=== PATIENT | male | born 1985 | race Caucasian/White ===

== ENCOUNTER 2022-05-23 11:19 | Inpatient (IN) ==
[2022-05-23] MEDS ORDERED: NS 1,000 ML IV 1,000 ML ONE ×2 (11:29→12:26)
[2022-05-23] MEDS ORDERED: NS 1,000 ML IV 1,000 ML IV ONE ×2 (11:33→12:23)
--- NOTE | 2022-05-23 11:33 | DR.GENAD ---
HPI Time Seen Time Seen by Provider: 05/23/22 11:33 Complaint/Symptoms Chief Complaint Doctors Comments: 36 y/o male presents with possible GI bleeding. Had nausea and vomiting this am, emesis was dark, smelly. Same with bowel movement today. + lightheaded, dizzy. Denies previous known GI bleeding, b ut states his Hbg was a 3 about 1 month ago, was placed on iron then, stopped due to nausea. PT takes ibuprofen, 600 mg TID for musculoskeletal pain, took a Goody powder last pm. Denies abdominal pain. No fever, chills, URI symptoms. Nurses notes reviewed Nurses Notes Review: Yes Source History Provided: Patient Mode of Arrival Mode of Arrival: Ambulatory PMH PMH Past Medical History: Anxiety, Hypertension and Kidney Stones Past Surgical History: Yes Surgical History: Cholecystectomy and Ortho Surgery Family History Family Medical History: Diabetes Mellitus, Cancer, [place] and Hypertension Social History Do you use any recreational Drugs:: No ROS Review of Systems Constitutional: Weakness Eyes: No Symptoms Reported ENTM: No Symptoms Reported Respiratoy: No Symptoms Reported Cardiovascular: No Symptoms Reported Gastrointestinal/Abdominal: Nausea and Vomiting Genitourinary: No Symptoms Reported Neurological: Weakness and Dizziness Musculoskeletal: No Symptoms Reported Integumentary: No Symptoms Reported Hematologic/Lymphatic: No Symptoms Reported Psychiatric: No Symptoms Reported All Other Systems: Reviewed and Negative PE Vital Signs Vitals: Temperature 98.9 F Pulse Rate 118 Respiratory Rate 30 Blood Pressure [Left Arm] 144/63 Blood Pressure 105/62 O2 Sat by Pulse Oximetry 98 General General Appearance: Alert and In No Apparent Distress Eyes Eye exam: PERRL, EOMI and Other (+ aple palpebral conjunctivae) ENT ENT Exam: Normal Exam and Mucous Membranes Moist Neck Neck Exam: Normal Inspection and Full ROM Respiratory Respiratory Exam: Normal Lung Sounds Bilat; negative Accessory Muscle Use or Respiratory Distress Cardiovascular Cardiovascular Exam: Regular Rate, Normal Rhythm, Tachycardia and Normal Heart Sounds Abdominal Exam Abdominal Exam: Normal Inspection, Normal Bowel Sounds and Soft; negative Tenderness Extremities Extremities Exam: Normal Inspection and Full ROM; negative Edema Neurologic Neurological Exam: Alert, Oriented X3 and CN II-XII Intact; negative Motor Sensory Deficit Skin Skin Exam: Warm and Dry COURSE Treatment Treatment: 36 y/o male ill since early this am. Reportedly vomited black emesis, plus a BM that was similar. + recent dx of anemia, put on iron, a month ago. W/u initiated. Pt given IV fluids, IV protonix/zofran. 1305 - sodium 150, potassium 3.0. Given 2nd L NS. Discussed with Dr Mccracken, he will admit. Hector consult with Dr Cody for possible EGD in the AM. NO active vomiting/stooling here. [facility]OR Labs Reviewed Laboratory Results Reviewed?: Yes Result Diagrams: 05/23/22 11:30 05/23/22 11:30 Laboratory: WBC 11.7 X10^3/uL (3.6-10.0) H 05/23/22 11:30 RBC 4.15 X10^6/uL (4.7-6.0) L 05/23/22 11:30 Hgb 10.7 g/dL (13.5-18.0) L 05/23/22 11:30 Hct 32.1 % (42.0-54.0) L 05/23/22 11:30 MCV 77.4 fL (80.0-100.0) L 05/23/22 11:30 MCH 25.8 pg (27.0-34.0) L 05/23/22 11:30 MCHC 33.3 g/dL (33.0-35.0) 05/23/22 11:30 RDW 20.5 % (11.6-16.5) H 05/23/22 11:30 Plt Count 172 X10^3/uL (150.0-450.0) 05/23/22 11:30 Plt Count Comment Adequate (ADEQUATE) 05/23/22 11:30 MPV 8.2 fL (7.4-11.0) 05/23/22 11:30 Neut % (Auto) 76.9 % (42.0-75.0) H 05/23/22 11:30 Lymph % (Auto) 14.5 % (21.0-51.0) L 05/23/22 11:30 [place] % (Auto) 7.5 % (0.0-13.0) 05/23/22 11:30 Eos % (Auto) 0.5 % (0.9-2.9) L 05/23/22 11:30 Baso % (Auto) 0.6 % (0.2-1.0) 05/23/22 11:30 Neut # (Auto) 9.0 x10^3/uL (2.2-4.8) H 05/23/22 11:30 Lymph # (Auto) 1.7 X10^3/uL (1.3-2.9) 05/23/22 11:30 [place] # (Auto) 0.9 x10^3/uL (0.3-0.8) H 05/23/22 11:30 Eos # (Auto) 0.1 x10^3/uL (0.0-0.2) 05/23/22 11:30 Baso # (Auto) 0.1 X10^3/uL (0.0-0.1) 05/23/22 11:30 Absolute Nucleated RBC 0.0 /100WBC 05/23/22 11:30 Plt Morphology Comment Normal (NORMAL) 05/23/22 11:30 RBC Morphology Abnormal (NORMAL) 05/23/22 11:30 Anisocytosis 1+ A 05/23/22 11:30 PT 22.5 SECONDS (11.8-14.3) 05/23/22 11:30 INR Target Range - 05/23/22 11:30 INR 2.08 (0.8-1.3) H 05/23/22 11:30 APTT 39.2 SECONDS (22.9-36.5) H 05/23/22 11:30 PTT Comment - 05/23/22 11:30 Sodium 150 mmol/L (136-145) H* 05/23/22 11:30 Corrected Sodium 151 mmol/L (136-145) H 05/23/22 11:30 Potassium 3.0 mmol/L (3.5-5.1) L 05/23/22 11:30 Chloride 112 mmol/L (98-107) H 05/23/22 11:30 Carbon Dioxide 23.6 mmol/L (21-32) 05/23/22 11:30 BUN 16 mg/dL (7-18) 05/23/22 11:30 Creatinine 1.12 mg/dL (0.70-1.30) 05/23/22 11:30 Est GFR (MDRD) Af Amer > 60 (>60) 05/23/22 11:30 Est GFR (MDRD) Non-Af > 60 (>60) 05/23/22 11:30 Glucose 121 mg/dL (65-99) H 05/23/22 11:30 Calcium 8.4 mg/dL (8.5-10.1) L 05/23/22 11:30 Corrected Calcium 9.2 mg/dL (8.5-10.1) 05/23/22 11:30 Total Bilirubin 1.40 mg/dL (0.2-1.0) H 05/23/22 11:30 AST 26 Units/L (15-37) 05/23/22 11:30 ALT 17 Units/L (12-78) 05/23/22 11:30 Alkaline Phosphatase 150 Units/L (46-116) H 05/23/22 11:30 Total Protein 6.4 g/dL (6.4-8.2) 05/23/22 11:30 Albumin 3.0 g/dL (3.4-5.0) L 05/23/22 11:30 Globulin 3.4 g/dL (2.5-4.5) 05/23/22 11:30 Albumin/Globulin Ratio 0.9 Ratio (1.1-2.1) L 05/23/22 11:30 Lipase 153 Units/L (73-393) 05/23/22 11:30 Blood Type O POSITIVE 05/23/22 11:35 Antibody Screen Negative 05/23/22 11:30 Opioid Opioid Risk Tool Total: 0 Total Score Risk Category: Low Risk Copyright: Froilan MARINA predicting aberrant behaviors Discharge Plan Diagnosis Discharge Problem: Acute upper GI bleed, Acute hypernatremia Discharge Plan Patient Disposition: 09 ADMITTED INPATIENT Condition: Stable Orders to Discharge Patient Discharge Orders: Transfer (Routine); Ordered 05/23/22 Ordered By: Ford Coats
[2022-05-23 11:43] VITALS: BMI 32.5
[2022-05-23] MEDS ORDERED: ZOFRAN INJ 4 MG VIAL IVP ONE (11:45)
[2022-05-23] MEDS ORDERED: PROTONIX INJ 40 MG VIAL IVP ONE (11:45)
[2022-05-23] MEDS ORDERED: ZOFRAN INJ 4 MG VIAL ONE (11:56)
[2022-05-23] MEDS ORDERED: PROTONIX INJ 40 MG VIAL ONE (11:56)
[2022-05-23 11:57] LABS: BASOPHILS # (AUTO) 0.1 X10^3/uL (0.0-0.1); BASOPHILS % (AUTO) 0.6 % (0.2-1.0); EOSINOPHILS # (AUTO) 0.1 x10^3/uL (0.0-0.2); EOSINOPHILS % (AUTO) 0.5 % (0.9-2.9); HEMATOCRIT 32.1 % (42.0-54.0); HEMOGLOBIN 10.7 g/dL (13.5-18.0); LYMPHOCYTES # (AUTO) 1.7 X10^3/uL (1.3-2.9); LYMPHOCYTES % (AUTO) 14.5 % (21.0-51.0); MEAN CORPUSCULAR HEMOGLOBIN 25.8 pg (27.0-34.0); MEAN CORPUSCULAR HGB CONC 33.3 g/dL (33.0-35.0); MEAN CORPUSCULAR VOLUME 77.4 fL (80.0-100.0); MEAN PLATELET VOLUME 8.2 fL (7.4-11.0); MONOCYTES # (AUTO) 0.9 x10^3/uL (0.3-0.8); MONOCYTES % (AUTO) 7.5 % (0.0-13.0); NEUTROPHILS % (AUTO) 76.9 % (42.0-75.0); RED BLOOD COUNT 4.15 X10^6/uL (4.7-6.0); RED CELL DISTRIBUTION WIDTH 20.5 % (11.6-16.5); WHITE BLOOD COUNT 11.7 X10^3/uL (3.6-10.0)
[2022-05-23 12:07] LABS: INR 2.08 (0.8-1.3)
[2022-05-23 12:16] LABS: ALANINE AMINOTRANSFERASE 17 Units/L (12-78); ALKALINE PHOSPHATASE 150 Units/L (46-116); ANISOCYTOSIS 1+; ASPARTATE AMINO TRANSFERASE 26 Units/L (15-37); BLOOD UREA NITROGEN 16 mg/dL (7-18); CALCIUM 8.4 mg/dL (8.5-10.1); CARBON DIOXIDE 23.6 mmol/L (21-32); CHLORIDE 112 mmol/L (98-107); COR CA(FOR HYPOALB) 9.2 mg/dL (8.5-10.1); COR NA(FOR HYPERGLY) 151 mmol/L (136-145); CREATININE 1.12 mg/dL (0.70-1.30); LIPASE 153 Units/L (73-393); PLATELET MORPHOLOGY COMMENT NORMAL (NORMAL); TOTAL PROTEIN 6.4 g/dL (6.4-8.2); eGFR NON BLACK RACES > 60 (>60)
[2022-05-23 12:19] LABS: SODIUM 150 mmol/L (136-145)
[2022-05-23] MEDS ORDERED: K-RIDER 10 MEQ/NS 100 ML 10 MEQ/100 ML BAG IV PRN ×3 (14:26→16:14)
[2022-05-23] MEDS ORDERED: KLOR-CON PO PRN ×2 (14:26→16:14)
[2022-05-23] MEDS ORDERED: POTASSIUM CHL 60 MEQ/NS 0.45% 500 ML IV PRN ×3 (14:26→16:14)
[2022-05-23] MEDS ORDERED: MAGNESIUM SULFATE 1 GRAM/100 mL PREMIX 1 G/100 ML BAG IV PRN ×3 (14:26→16:14)
[2022-05-23] MEDS ORDERED: MICRO K EXTEN CAP 10 MEQ PO PRN ×3 (14:26→16:14)
[2022-05-23] MEDS ORDERED: K-DUR TAB 20 MEQ PO PRN ×2 (14:26→16:14)
[2022-05-23] MEDS ORDERED: POTASSIUM CHL 40 MEQ/NS 0.45% 500 ML IV PRN ×3 (14:26→16:14)
[2022-05-23] MEDS ORDERED: POTASSIUM CHLORIDE LIQ 20 MEQ UDC PO PRN ×3 (14:26→16:14)
[2022-05-23] MEDS: NEURONTIN TAB 600 MG PO SCH ×2 (16:30→21:16)
[2022-05-23] MEDS: MAGNESIUM SULFATE 1 GRAM/100 mL PREMIX 1 G/100 ML BAG IV PRN ×2 (16:32→17:42)
[2022-05-23] MEDS: KLOR-CON PO PRN (16:32)
[2022-05-23] MEDS: D5 1/2 NS 1,000 ML 1,000 ML with POTASSIUM CHLORIDE INJ 10 MEQ VIAL 10 MEQ IV SCH ×4 (16:40→23:53)
[2022-05-23 16:51] LABS: BILIRUBIN,URINE NEGATIVE (NEGATIVE); BLOOD/HEMOGLOBIN,URINE 5+ (NEGATIVE); GLUCOSE, URINE NEGATIVE (NEGATIVE); KETONES,URINE 2+ (NEGATIVE); LEUKOCYTE ESTERASE ,URINE 1+ (NEGATIVE); NITRITES,URINE NEGATIVE (NEGATIVE); PH,URINE 6.5 (5.0 - 8.0); PROTEIN,URINE 2+ (NEGATIVE); UROBILINOGEN,URINE 1+ (NORMAL)
[2022-05-23 17:03] LABS: APPEARANCE,URINE HAZY (CLEAR); COLOR,URINE AMBER (YELLOW)
[2022-05-23 17:04] LABS: BACTERIA,URINE NEGATIVE /HPF (NEGATIVE); RBC,URINE 20-30 /HPF (0-3); SQUAMOUS EPITHELIAL CELL,UR RARE /HPF (NEGATIVE)
[2022-05-23] MEDS: ZOCOR TAB 40 MG PO SCH (21:16)
[2022-05-23] MEDS: K-DUR TAB 20 MEQ PO PRN (21:17)
[2022-05-23] MEDS: ZOFRAN INJ 4 MG VIAL IVP PRN (21:30)
[2022-05-24] MEDS: D5 1/2 NS 1,000 ML 1,000 ML with POTASSIUM CHLORIDE INJ 10 MEQ VIAL 10 MEQ IV SCH ×2 (02:48)
[2022-05-24 05:03] LABS: BASOPHILS # (AUTO) 0.1 X10^3/uL (0.0-0.1); BASOPHILS % (AUTO) 0.6 % (0.2-1.0); EOSINOPHILS # (AUTO) 0.3 x10^3/uL (0.0-0.2); EOSINOPHILS % (AUTO) 2.6 % (0.9-2.9); HEMATOCRIT 29.1 % (42.0-54.0); HEMOGLOBIN 9.7 g/dL (13.5-18.0); LYMPHOCYTES # (AUTO) 3.9 X10^3/uL (1.3-2.9); LYMPHOCYTES % (AUTO) 34.4 % (21.0-51.0); MEAN CORPUSCULAR HEMOGLOBIN 25.4 pg (27.0-34.0); MEAN CORPUSCULAR HGB CONC 33.3 g/dL (33.0-35.0); MEAN CORPUSCULAR VOLUME 76.1 fL (80.0-100.0); MEAN PLATELET VOLUME 8.6 fL (7.4-11.0); MONOCYTES # (AUTO) 0.9 x10^3/uL (0.3-0.8); MONOCYTES % (AUTO) 7.9 % (0.0-13.0); NEUTROPHILS # (AUTO) 6.2 x10^3/uL (2.2-4.8); NEUTROPHILS % (AUTO) 54.5 % (42.0-75.0); RED BLOOD COUNT 3.83 X10^6/uL (4.7-6.0); RED CELL DISTRIBUTION WIDTH 20.4 % (11.6-16.5); WHITE BLOOD COUNT 11.4 X10^3/uL (3.6-10.0)
[2022-05-24 05:15] LABS: ALANINE AMINOTRANSFERASE 15 Units/L (12-78); ALBUMIN 2.9 g/dL (3.4-5.0); ALKALINE PHOSPHATASE 128 Units/L (46-116); ASPARTATE AMINO TRANSFERASE 31 Units/L (15-37); BLOOD UREA NITROGEN 19 mg/dL (7-18); CALCIUM 7.8 mg/dL (8.5-10.1); CARBON DIOXIDE 23.7 mmol/L (21-32); CHLORIDE 114 mmol/L (98-107); COR CA(FOR HYPOALB) 8.7 mg/dL (8.5-10.1); CREATININE 0.93 mg/dL (0.70-1.30); MAGNESIUM 1.9 mg/dL (2.0-2.9); TOTAL PROTEIN 5.8 g/dL (6.4-8.2); eGFR NON BLACK RACES > 60 (>60)
[2022-05-24] MEDS: NEURONTIN TAB 600 MG PO SCH ×3 (05:29→21:06)
[2022-05-24 05:30] LABS: SODIUM 150 mmol/L (136-145)
[2022-05-24 05:35] LABS: ANISOCYTOSIS 1+; HYPOCHROMASIA SLIGHT; MICROCYTOSIS SLIGHT; OVALOCYTES PRESENT; PLATELET MORPHOLOGY COMMENT NORMAL (NORMAL); TARGET CELLS PRESENT
[2022-05-24] MEDS: MAGNESIUM SULFATE 1 GRAM/100 mL PREMIX 1 G/100 ML BAG IV PRN ×2 (06:24→16:37)
[2022-05-24] MEDS: ZOFRAN INJ 4 MG VIAL IVP PRN ×2 (07:17→20:16)
[2022-05-24] MEDS: PROTONIX INJ 40 MG VIAL IVP SCH (08:17)
[2022-05-24] MEDS: D5 1/2 NS 1,000 ML 1,000 ML IV SCH ×2 (08:17→16:45)
[2022-05-24] MEDS: PEPCID TAB 20 MG PO SCH (08:18)
--- NOTE | 2022-05-24 12:09 | DR.H&P ---
H&P - History & Physical for Day of: H&P Date: 05/23/22 - Chief Complaint Chief Complaint: NAUSEA, VOMITING, DARK/TARRY STOOLS - History of Present Illness History of Present Illness: IS A 36 YEAR OLD PATIENT OF OURS. HE PRESENTED TO THE ER WITH COMPLAINTS OF NAUSEA AND VOMITING. HE REPORTS THAT EMESIS WAS DARK AND HAD A FOUL ODOR. HE ALSO REPORTED HAVING A DARK, TARRY BOWEL MOVEMENT EARLIER IN THE DAY. ADDITIONAL SYMPTOMS INCLUDE DIZZINESS AND BEING LIGHTHEADED. HE DENIES PREVIOUS GI BLEED, BUT STATES THAT HIS HEMOGLOBIN WAS 3 g/dL ABOUT A MONTH AGO. HE WAS STARTED ON IRON SUPPLEMENTS AT THAT TIME, BUT STOPPED TAKING THEM DUE TO NAUSEA. HE ADMITS TO TAKING IBUPROFEN THREE TIMES A DAY FOR PAIN AND HE ALSO TOOK A GOODY POWDER ONE DAY PRIOR. HE DENIES ABDOMINAL PAIN, FEVER, CHILLS, OR URI SYMTPOMS. HIS PMH INCLUDES ANXIETY, HTN, KIDNEY STONES, CHRONIC LOW BACK PAIN, CHOLECYSTECTOMY. ON ARRIVAL, HIS VITALS WERE 98.9-154-20-97%-108/56. LABS WERE OBTAINED. WBC 11.7, RBC 4.15, HGB 10.7, HCT 32.1, PLT COUNT 172, INR 2.08, PTT 39.2, SODIUM 150, POTASSIUM 3.0, CHLORIDE 112, BUN 16, CREATININE 1.12, GLUCOSE 121, CALCIUM 8.4, MAGNESIUM 1.7, TOTAL BILI 1.40, AST 26, ALT 17, ALK PHOS 150, TOTAL PROTEIN 6.4, ALBUMIN 3.0, GLOB ULIN 3.4. URINALYSIS REVEALED WBC 5-10, RBC 20-30, BACTERIA NEGATIVE, LEUKOCYTES 1+, PROTEIN 2+. WE WILL SET UP A URINE CULTURE. , GENERAL SURGEON WAS CONSULTED. HE PLANS FOR AN UPPER ENDOSCOPY TODAY. IN THE ER, HE WAS GIVEN A NORMAL SALINE BOLUS X 2 LITERS, PROTONIX 40MG IV DAILY, ZOFRAN 4MG IV X 1. HE WAS ADMITTED TO THE HOSPITAL FOR FURTHER EVALUATION AND TREATMENT OF UPPER GI BLEED, HYPERNATREMIA. HE WAS STARTED ON D51/2 NS AT 125 ML/HR, PEPCID 20MG IV DAILY, PROTONIX 40MG IV DAILY, ZOFRAN 4MG IV Q6H PRN, PERCOCET 5/325 2 TABS PO Q6H PRN, ZOCOR 40MG PO HS, NEURONTIN 600MG PO TID, AND THE POTASSIUM AND MAGNESIUM PROTOCOLS. OTHERWISE, WE WILL FOLLOW-UP WITH AM LABS AND CONTINUE TO MONITOR. TIME SPENT ON CLINICAL ASSESSMENT, REVIWING LABS AND IMAGING, DECISION MAKING, AND DOCUMENTATION GREATER THAN 75 MINUTES. - Past Medical History Past Medical History: Anemia, Anxiety, Hypertension, Kidney Stones Additional Medical History: Hx of Degenerative Disc Disease, Hormone Disorder - Past Surgical History Surgical History: Cholecystectomy, Ortho Surgery Additional Surgical History: Hx of Lumbar Disc Replacement(2014), Pilonidal Cyst Removal(2000), Fistula Removal(2000) - Family History Family Medical History: Diabetes Mellitus, Cancer, [place], Hypertension - Social History Does patient currently use any type of tobacco product: Yes (1 pack daily) Have you used tobacco products in the last 12 months: Yes Type of Tobacco Use: Cigarettes Does any household member use tobacco: Yes Alcohol Use: None Drug Use: None - Medications Home Medications: No Known Drug Allergies Allergy (Verified 05/23/22 23:29) CONTINUE taking the following medications cyclobenzaprine 10 mg tablet 1 tab PO TID 05/23/22 [History] oxycodone-acetaminophen 10 mg-325 mg tablet 1 tab PO QID PRN 05/23/22 [History] - Review of Systems Constitutional: Weakness Eyes: No Symptoms Reported ENT: No Symptoms Reported Respiratory: No Symptoms Reported Cardiovascular: No Symptoms Reported Gastrointestinal: Nausea, Vomiting, Melena Genitourinary: No Symptoms Reported Musculoskeletal: No Symptoms Reported Skin: No Symptoms Reported Neurological: Weakness - Physical Exam Vital Signs: Temperature 99.6 F Pulse Rate [Bilateral Radial] 114 Pulse Rate 122 Respiratory Rate 20 Blood Pressure [Left Arm] 136/71 Blood Pressure 101/49 O2 Sat by Pulse Oximetry 98 Oriented: Normal Eyes: Normal Ear: Normal Nose: Normal Throat: Normal Respiratory: Clear Throughout Cardiovascular: Tachycardia : Normal Auscultation: Bowel Sounds: Normal Palpation: Normal Tenderness: Normal Musculoskeletal: Normal Psychiatric: Normal Mood Description: Calm Affect: Normal Speech Pattern: Clear - Assessment/Plan (1) Acute upper GI bleed Status: Acute Plan: ADMIT, EGD TODAY, D51/2 NS AT 125 ML/HR, PEPCID 20MG IV DAILY, PROTONIX 40MG IV DAILY, ZOFRAN 4MG IV Q6H PRN, PERCOCET 5/325 2 TABS PO Q6H PRN, ZOCOR 40MG PO HS, NEURONTIN 600MG PO TID, AND THE POTASSIUM AND MAGNESIUM PROTOCOLS. (2) Acute hypernatremia Status: Acute (3) Hypokalemia Status: Acute (4) Anemia Qualifiers: Anemia type: iron deficiency Iron deficiency anemia type: chronic blood loss Qualified Code(s): D50.0 - Iron deficiency anemia secondary to blood loss (chronic) Status: Acute - Allergies Allergies/Adverse Reactions: Allergies Allergy/AdvReac Type Severity Reaction Status Date / Time No Known Drug Allergies Allergy Verified 05/23/22 23:29
[2022-05-24] MEDS: MORPHINE SULFATE INJ 2 MG INJ IVP PRN ×2 (12:55→17:36)
[2022-05-24] MEDS ORDERED: NS 500 ML IV 500 ML IV ONE (13:40)
[2022-05-24] MEDS ORDERED: DIPRIVAN VIAL 20 ML ONE (13:49)
[2022-05-24] MEDS ORDERED: ZOFRAN INJ 4 MG VIAL ONE (14:00)
[2022-05-24] MEDS ORDERED: REGLAN INJ 10 MG VIAL IVP PRN (14:10)
[2022-05-24] MEDS: KLOR-CON PO PRN (17:56)
[2022-05-24] MEDS ORDERED: BUTT CREAM (COMPOUND) TOP PRN (19:02)
[2022-05-24] MEDS: ZOCOR TAB 40 MG PO SCH (20:16)
[2022-05-24] MEDS: PERCOCET TAB 5/325 MG PO PRN (20:37)
[2022-05-25] MEDS: D5 1/2 NS 1,000 ML 1,000 ML IV SCH ×3 (01:00→18:34)
[2022-05-25] MEDS: PERCOCET TAB 5/325 MG PO PRN ×4 (02:50→20:46)
[2022-05-25] MEDS: NEURONTIN TAB 600 MG PO SCH ×3 (05:30→22:00)
[2022-05-25 06:19] LABS: BASOPHILS # (AUTO) 0.2 X10^3/uL (0.0-0.1); BASOPHILS % (AUTO) 2.8 % (0.2-1.0); EOSINOPHILS # (AUTO) 0.2 x10^3/uL (0.0-0.2); EOSINOPHILS % (AUTO) 2.6 % (0.9-2.9); HEMATOCRIT 26.4 % (42.0-54.0); LYMPHOCYTES # (AUTO) 2.3 X10^3/uL (1.3-2.9); LYMPHOCYTES % (AUTO) 29.3 % (21.0-51.0); MEAN CORPUSCULAR HEMOGLOBIN 26.3 pg (27.0-34.0); MEAN CORPUSCULAR HGB CONC 33.9 g/dL (33.0-35.0); MEAN CORPUSCULAR VOLUME 77.7 fL (80.0-100.0); MEAN PLATELET VOLUME 8.2 fL (7.4-11.0); MONOCYTES # (AUTO) 0.5 x10^3/uL (0.3-0.8); MONOCYTES % (AUTO) 6.4 % (0.0-13.0); NEUTROPHILS # (AUTO) 4.6 x10^3/uL (2.2-4.8); NEUTROPHILS % (AUTO) 58.9 % (42.0-75.0); RED CELL DISTRIBUTION WIDTH 19.9 % (11.6-16.5); WHITE BLOOD COUNT 7.8 X10^3/uL (3.6-10.0)
[2022-05-25 06:22] LABS: ALANINE AMINOTRANSFERASE 20 Units/L (12-78); ALBUMIN 3.1 g/dL (3.4-5.0); ALKALINE PHOSPHATASE 135 Units/L (46-116); ASPARTATE AMINO TRANSFERASE 37 Units/L (15-37); BLOOD UREA NITROGEN 12 mg/dL (7-18); CALCIUM 7.8 mg/dL (8.5-10.1); CARBON DIOXIDE 23.8 mmol/L (21-32); CHLORIDE 110 mmol/L (98-107); COR CA(FOR HYPOALB) 8.5 mg/dL (8.5-10.1); SODIUM 145 mmol/L (136-145); eGFR NON BLACK RACES > 60 (>60)
[2022-05-25] MEDS: K-DUR TAB 20 MEQ PO PRN (08:49)
[2022-05-25] MEDS: PEPCID TAB 20 MG PO SCH (08:50)
[2022-05-25] MEDS: PROTONIX INJ 40 MG VIAL IVP SCH (08:50)
[2022-05-25] MEDS ORDERED: GOLYTELY or GAVILYTE or Equivalent PO SCH (09:00)
[2022-05-25] MEDS: ZOFRAN INJ 4 MG VIAL IVP PRN ×2 (11:12→18:41)
[2022-05-25 19:21] LABS: MAGNESIUM 1.6 mg/dL (2.0-2.9)
[2022-05-25] MEDS: KLOR-CON PO PRN ×2 (19:45→23:02)
[2022-05-25] MEDS: MAGNESIUM SULFATE 1 GRAM/100 mL PREMIX 1 G/100 ML BAG IV PRN ×2 (19:45→20:45)
[2022-05-25] MEDS: ZOCOR TAB 40 MG PO SCH (20:43)
[2022-05-26] MEDS: D5 1/2 NS 1,000 ML 1,000 ML IV SCH ×2 (01:24→04:35)
[2022-05-26 02:20] LABS: BLOOD UREA NITROGEN 7 mg/dL (7-18); CALCIUM 7.4 mg/dL (8.5-10.1); CARBON DIOXIDE 23.1 mmol/L (21-32); CHLORIDE 107 mmol/L (98-107); CREATININE 0.89 mg/dL (0.70-1.30); SODIUM 142 mmol/L (136-145); eGFR NON BLACK RACES > 60 (>60)
[2022-05-26 02:23] LABS: BASOPHILS % (AUTO) 0.9 % (0.2-1.0); EOSINOPHILS # (AUTO) 0.1 x10^3/uL (0.0-0.2); EOSINOPHILS % (AUTO) 3.5 % (0.9-2.9); HEMATOCRIT 22.7 % (42.0-54.0); HEMOGLOBIN 7.8 g/dL (13.5-18.0); LYMPHOCYTES # (AUTO) 1.4 X10^3/uL (1.3-2.9); LYMPHOCYTES % (AUTO) 40.1 % (21.0-51.0); MEAN CORPUSCULAR HEMOGLOBIN 26.5 pg (27.0-34.0); MEAN CORPUSCULAR HGB CONC 34.5 g/dL (33.0-35.0); MEAN CORPUSCULAR VOLUME 76.9 fL (80.0-100.0); MEAN PLATELET VOLUME 7.8 fL (7.4-11.0); MONOCYTES # (AUTO) 0.3 x10^3/uL (0.3-0.8); MONOCYTES % (AUTO) 9.3 % (0.0-13.0); NEUTROPHILS # (AUTO) 1.6 x10^3/uL (2.2-4.8); NEUTROPHILS % (AUTO) 46.2 % (42.0-75.0); RED BLOOD COUNT 2.96 X10^6/uL (4.7-6.0); RED CELL DISTRIBUTION WIDTH 19.5 % (11.6-16.5); WHITE BLOOD COUNT 3.5 X10^3/uL (3.6-10.0)
[2022-05-26 03:01] LABS: ALANINE AMINOTRANSFERASE 27 Units/L (12-78); ALBUMIN 2.9 g/dL (3.4-5.0); ALKALINE PHOSPHATASE 135 Units/L (46-116); ASPARTATE AMINO TRANSFERASE 64 Units/L (15-37); COR CA(FOR HYPOALB) 8.3 mg/dL (8.5-10.1); MAGNESIUM 1.8 mg/dL (2.0-2.9); TOTAL PROTEIN 5.7 g/dL (6.4-8.2)
[2022-05-26] MEDS: MAGNESIUM SULFATE 1 GRAM/100 mL PREMIX 1 G/100 ML BAG IV PRN ×2 (03:30→04:35)
[2022-05-26] MEDS: NEURONTIN TAB 600 MG PO SCH (05:28)
[2022-05-26] MEDS: MORPHINE SULFATE INJ 2 MG INJ IVP PRN (06:31)
[2022-05-26] MEDS: PROTONIX INJ 40 MG VIAL IVP SCH (08:24)
[2022-05-26] MEDS: PEPCID TAB 20 MG PO SCH (08:34)
[2022-05-26] MEDS ORDERED: NS 500 ML IV 500 ML IV ONE (10:10)
[2022-05-26] MEDS ORDERED: DIPRIVAN VIAL 20 ML ONE ×2 (10:21→10:32)
--- NOTE | 2022-05-26 10:41 | PCM.PROG ---
Progress Note - Progress Note for Day of Date of Exam: 05/25/22 - Subjective Subjective: IS CURRENTLY INPATIENT STATUS FOR TREATMENT OF ACUTE UPPER GI BLEED, ANEMIA, HYPERNATREMIA, AND HYPOKALEMIA. TODAY, HE IS ALERT AND ORIENTED, LYING IN BED ON MORNING ROUNDS. HE CONTINUES WITH COMPLAINTS OF NAUSEA AND GENERALIZED WEAKNESS. HE CONTINUES TO HAVE DARK STOOLS. ON EXAMINATION, HEART IS REGULAR IN RATE AND RHYTHM. BILATERAL LUNGS ARE CLEAR TO AUSCULTATION. ABDOMEN IS ROUND, SOFT, AND NON-TENDER WITH NORMAL BOWEL SOUNDS NOTED IN ALL QUADRANTS. NO UPPER OR LOWER EXTREMITY EDEMA NOTED. HIS VITALS THIS MORNING ARE: 98.0-96-18-98%-132/72. LABS WERE OBTAINED. WBC 7.8, RBC 3.40, HGB 9.0, HCT 26.4, PLT COUNT 137, SODIUM 145, POTASSIUM 3.0, CHLORIDE 110, BUN 12, CREATININE 0.90, GLUCOSE 105, CALCIUM 7.8, MAGNESIUM 1.6, TOTAL BILI 1.30, AST 37, ALT 20, ALK PHOS 135, TOTAL PROTEIN 6.0, ALBUMIN 3.1. GGT PENDING. URINE CULTURE IS PENDING. AN UPPER ENDOSCOPY WAS PERFORMED YESTERDAY AND REVEALED MODERATE DIFFUSE ESOPHAGITIS WITH MILD ESOPHAGEAL DYSMOTILITY DISORDER, CHRONIC AND ACUTE GASTRITIS WITH GASTROPARESIS, ESOPHAGEAL VARICIES, LARGE AMOUNT OF RESIDUAL FOOD IN THE STOMACH. NO ACTIVE BLEEDING, ULCERS, OR NEOPLASM NOTED. SHE IS CURRENTLY RECEIVING D51/2 NS AT 125 ML/HR, REGLAN 10MG IV Q8H, PEPCID 20MG IV DAILY, PROTONIX 40MG IV DAILY, ZOFRAN 4MG IV Q6H PRN, PERCOCET 5/325 2 TABS PO Q6H PRN, ZOCOR 40MG PO HS, NEURONTIN 600MG PO TID, AND THE POTASSIUM AND MAGNESIUM PROTOCOLS. HE IS SCHEDULED FOR A COLONOSCOPY TOMORROW. OTHERWISE, WE PLAN TO FOLLOW-UP WITH AM LABS AND CONTINUE TO MONITOR. TIME SPENT ON CLINICAL ASSESSMENT, REVIWING LABS AND IMAGING, DECISION MAKING, AND DOCUMENTATION GREATER THAN 45 MINUTES. - Past Medical Family Social History Past Med/Fam/Surg Hx: No changes since H&P Allergies: Allergies No Known Drug Allergies Allergy (Verified 05/23/22 23:29) - Review of Systems ROS: No change since H&P - Vital Signs and I&O's Vital Signs: Temperature 98.1 F Pulse Rate [Bilateral Radial] 100 Pulse Rate 122 Respiratory Rate 20 Blood Pressure [Left Arm] 144/84 Blood Pressure 101/49 O2 Sat by Pulse Oximetry 98 Intake and Output: Intake & Output 05/23/22 05/24/22 05/25/22 05/26/22 11:59 11:59 11:59 11:59 Intake Total 2329 / 2329 2465 / 2465 6251 / 6251 Balance 2329 / 2329 2465 / 2465 6251 / 6251 - Physical Exam Oriented: Normal Eyes: Normal Ear: Normal Nose: Normal Throat: Normal Respiratory: Normal Cardiovascular: Normal : Normal Auscultation: Bowel Sounds: Normal Palpation: Normal (-) Tenderness: Normal Skin: Normal Musculoskeletal: Normal Psychiatric: Normal Mood Description: Calm Affect: Normal Speech Pattern: Clear - Laboratory and Diagnostics Result Diagrams: 05/26/22 02:00 05/26/22 02:00 Labs: Laboratory WBC 3.5 X10^3/uL (3.6-10.0) L 05/26/22 02:00 RBC 2.96 X10^6/uL (4.7-6.0) L 05/26/22 02:00 Hgb 7.8 g/dL (13.5-18.0) L 05/26/22 02:00 Hct 22.7 % (42.0-54.0) L 05/26/22 02:00 MCV 76.9 fL (80.0-100.0) L 05/26/22 02:00 MCH 26.5 pg (27.0-34.0) L 05/26/22 02:00 MCHC 34.5 g/dL (33.0-35.0) 05/26/22 02:00 RDW 19.5 % (11.6-16.5) H 05/26/22 02:00 Plt Count 96 X10^3/uL (150.0-450.0) L 05/26/22 02:00 Plt Count Comment Adequate (ADEQUATE) 05/24/22 04:34 MPV 7.8 fL (7.4-11.0) 05/26/22 02:00 Neut % (Auto) 46.2 % (42.0-75.0) 05/26/22 02:00 Lymph % (Auto) 40.1 % (21.0-51.0) 05/26/22 02:00 Emanuel % (Auto) 9.3 % (0.0-13.0) 05/26/22 02:00 Eos % (Auto) 3.5 % (0.9-2.9) H 05/26/22 02:00 Baso % (Auto) 0.9 % (0.2-1.0) 05/26/22 02:00 Neut # (Auto) 1.6 x10^3/uL (2.2-4.8) L 05/26/22 02:00 Lymph # (Auto) 1.4 X10^3/uL (1.3-2.9) 05/26/22 02:00 Emanuel # (Auto) 0.3 x10^3/uL (0.3-0.8) 05/26/22 02:00 Eos # (Auto) 0.1 x10^3/uL (0.0-0.2) 05/26/22 02:00 Baso # (Auto) 0.0 X10^3/uL (0.0-0.1) 05/26/22 02:00 Absolute Nucleated RBC 0.0 /100WBC 05/26/22 02:00 Plt Morphology Comment Normal (NORMAL) 05/24/22 04:34 RBC Morphology Abnormal (NORMAL) 05/24/22 04:34 Hypochromasia Slight A 05/24/22 04:34 Anisocytosis 1+ A 05/24/22 04:34 Microcytosis Slight A 05/24/22 04:34 Target Cells Present 05/24/22 04:34 Ovalocytes Present 05/24/22 04:34 PT 19.3 SECONDS (11.8-14.3) 05/26/22 02:00 INR Target Range - 05/26/22 02:00 INR 1.70 (0.8-1.3) H 05/26/22 02:00 APTT 39.2 SECONDS (22.9-36.5) H 05/23/22 11:30 PTT Comment - 05/23/22 11:30 Sodium 142 mmol/L (136-145) 05/26/22 02:00 Corrected Sodium TNP 05/26/22 02:00 Potassium 3.6 mmol/L (3.5-5.1) 05/26/22 02:00 Potassium Cancelled 05/26/22 02:00 Chloride 107 mmol/L (98-107) 05/26/22 02:00 Carbon Dioxide 23.1 mmol/L (21-32) 05/26/22 02:00 BUN 7 mg/dL (7-18) 05/26/22 02:00 Creatinine 0.89 mg/dL (0.70-1.30) 05/26/22 02:00 Est GFR (MDRD) Af Amer > 60 (>60) 05/26/22 02:00 Est GFR (MDRD) Non-Af > 60 (>60) 05/26/22 02:00 Glucose 102 mg/dL (65-99) H 05/26/22 02:00 Calcium 7.4 mg/dL (8.5-10.1) L 05/26/22 02:00 Corrected Calcium 8.3 mg/dL (8.5-10.1) L 05/26/22 02:00 Magnesium 1.8 mg/dL (2.0-2.9) L 05/26/22 02:00 Total Bilirubin 1.40 mg/dL (0.2-1.0) H 05/26/22 02:00 AST 64 Units/L (15-37) H 05/26/22 02:00 ALT 27 Units/L (12-78) 05/26/22 02:00 Alkaline Phosphatase 135 Units/L (46-116) H 05/26/22 02:00 Total Protein 5.7 g/dL (6.4-8.2) L 05/26/22 02:00 Albumin 2.9 g/dL (3.4-5.0) L 05/26/22 02:00 Globulin 2.8 g/dL (2.5-4.5) 05/26/22 02:00 Albumin/Globulin Ratio 1.0 Ratio (1.1-2.1) L 05/26/22 02:00 Lipase 153 Units/L (73-393) 05/23/22 11:30 Specimen Type Clean catch urine 05/23/22 15:35 Urine Color Arabella (YELLOW) 05/23/22 15:35 Urine Appearance Hazy (CLEAR) 05/23/22 15:35 Urine pH 6.5 (5.0 - 8.0) 05/23/22 15:35 Ur Specific [place] 1.010 (1.000-1.030) 05/23/22 15:35 Urine Protein 2+ (NEGATIVE) 05/23/22 15:35 Urine Glucose (UA) Negative (NEGATIVE) 05/23/22 15:35 Urine Ketones 2+ (NEGATIVE) 05/23/22 15:35 Urine Blood 5+ (NEGATIVE) 05/23/22 15:35 Urine Nitrite Negative (NEGATIVE) 05/23/22 15:35 Urine Bilirubin Negative (NEGATIVE) 05/23/22 15:35 Urine Urobilinogen 1+ (NORMAL) 05/23/22 15:35 Ur Leukocyte Esterase 1+ (NEGATIVE) 05/23/22 15:35 Urine RBC 20-30 /HPF (0-3) A 05/23/22 15:35 Urine WBC 5-10 /HPF (0-5) A 05/23/22 15:35 Ur Squamous Epith Cells Rare /HPF (NEGATIVE) 05/23/22 15:35 Urine Bacteria Negative /HPF (NEGATIVE) 05/23/22 15:35 Ur Culture Indicated? No/not indicated 05/23/22 15:35 Stl Occult Blood (IFOB) Positive (NEGATIVE) A 05/24/22 16:09 Tissue Pathology To follow 05/24/22 13:53 Blood Type O POSITIVE 05/23/22 11:35 Antibody Screen Negative 05/23/22 11:30 - Plan (1) Acute upper GI bleed Status: Acute Plan: D51/2 NS AT 125 ML/HR, PEPCID 20MG IV DAILY, PROTONIX 40MG IV DAILY, ZOFRAN 4MG IV Q6H PRN, PERCOCET 5/325 2 TABS PO Q6H PRN, REGLAN 10MG IV Q8H, ZOCOR 40MG PO HS, NEURONTIN 600MG PO TID, AND THE POTASSIUM AND MAGNESIUM PROTOCOLS. (2) Acute hypernatremia Status: Acute (3) Hypokalemia Status: Acute (4) Anemia Status: Acute Qualifiers: Anemia type: iron deficiency Iron deficiency anemia type: chronic blood loss Qualified Code(s): D50.0 - Iron deficiency anemia secondary to blood loss (chronic) (5) Esophagitis with gastritis Status: Acute (6) Gastroparesis Status: Acute
[2022-05-26 12:02] VITALS: BP 148/80
[2022-05-26] MEDS: PERCOCET TAB 5/325 MG PO PRN (12:15)
[2022-05-26] MEDS ORDERED: REGLAN INJ 10 MG VIAL IVP SCH (14:00)
--- NOTE | 2022-05-26 15:45 | CT ---
HISTORYABDOMINAL PAIN, RECTAL BLEEDING. PT HAD COLONOSCOPY THIS AMSTUDYABDOMEN/PELVIS WITH CONCOMPARISONTECHNIQUEMultiple axial images of the abdomen and pelvis were obtained from the lung bases to the pubic symphysis after the administration of IV contrast. Dose reduction techniques including Automated Exposure Control (AEC) and adjustment of mA and kV were utilized.FINDINGSThe lung bases are clear without effusion. The heart size is normal. Gynecomastia is noted. There is cirrhosis of the liver. No liver mass is identified. The spleen is enlarged. There is no evidence of a portal vein thrombosis. There is contrast extravasation into the lumen of the small bowel in the area of the proximal jejunum and this likely represents the focus of the GI bleeding. There is oral contrast in the more distal small bowel and in the proximal colon. Some is mildly atrophic but otherwise grossly unremarkable. The adrenal glands and kidneys are normal. Stomach is normal in size. There is nonspecific wall thickening of the proximal small bowel. There is no evidence for appendicitis. Large bowel loops are grossly unremarkable. Urinary bladder is collapsed. Prostate gland is normal. There is moderate volume ascites.IMPRESSION1. There is a focus of active bleeding in the lumen of the proximal jejunum.2. Cirrhosis with splenomegaly and portal hypertension and moderate volume ascites.3. Gynecomastia.Electronically signed by: Dewey Romero (May 26, 2022 15:44:40)
== END 2022-05-26 15:45 | disposition home or self-care (01) | DRG 378 ==
LOC: MED/SURG 11:19 → ER 11:19 → OBSVTOIN 13:38 → MED/SURG 14:25
PROVIDERS: ADMIT Internal Medicine; ATTEND Internal Medicine
DX: K21.00 Gastro-esophageal reflux disease with esophagitis, without bleeding; K29.00 Acute gastritis without bleeding; D50.8 Other iron deficiency anemias; K64.3 Fourth degree hemorrhoids; D12.3 Benign neoplasm of transverse colon; I10 Essential (primary) hypertension; R79.1 Abnormal coagulation profile; R42 Dizziness and giddiness; R11.2 Nausea with vomiting, unspecified; K31.84 Gastroparesis; E87.6 Hypokalemia; K92.1 Melena; B96.29 Other Escherichia coli [E. coli] as the cause of diseases classified elsewhere; K57.30 Diverticulosis of large intestine without perforation or abscess without bleeding; E87.0 Hyperosmolality and hypernatremia

== ENCOUNTER 2022-05-27 19:40 | Observation (INO) ==
[2022-05-27] MEDS ORDERED: ZOFRAN INJ 4 MG VIAL IM ONE (20:22)
[2022-05-27] MEDS ORDERED: DEMEROL INJ IM ONE (20:22)
--- NOTE | 2022-05-27 20:22 | DR.ABDMALE ---
HPI Time seen Time Seen by Provider: 05/27/22 20:21 PCP Primary Care Physician: Nawaf HPI comment HPI Comment: PATIENT IS 36YR OLD MALE IN ER WITH DIFFUSED ABDOMINAL PAIN THAT IS 10/10. PATIENT IS ALSO BLEEDING FROM NOSE, RECTUM AND VOMITING BLOOD. NO FEVER OR DYSURIA. DISCHARGE FROM HOSPITAL AFTER EGD AND COLONONOSCOPY. DENIES FEVER. Complaint Chief Complaint Doctors Comments: DIFFUSED ABDOMINAL PAIN AND DISTENSION AND GI BLEEDING. Chief Complaint:: Patient states he was discharged from hospital yesterday. He states he had a colonoscopy per Dr Krause. He states his stomach is cramping, swelling, and he is passing blood in stool, nose bleed, and vomiting blood. He complains of severe abdominal pain/cramping 10 Self Treatment fo Chief Complaint: He takes percocet 10s for chronic back pain COVID-19 Coronavirus risk:travel/contact w/high risk person: No Has patient experienced Coronavirus symptoms: No Mode of arrival Mode of Arrival: Ambulatory Timing Onset of Chief Complaint: 05/27/22 Duration Duration: Constant Duration: Days Location Location: Diffuse Severity Severity: Severe Quality Quality: Cramping and Sharp Context Onset: Gradually Modifying factors Worsening Factors: Movement Improving Factors: Nothing Associated signs and symptoms Associated Signs and Symptoms: Nausea, Hematemesis and Hematochezia PMH PMH Past Medical History: Yes Past Medical History: Anemia, Anxiety, Hypertension and Kidney Stones Past Surgical History: Yes Surgical History: Cholecystectomy and Ortho Surgery Family History History of Family Medical Conditions: Yes Family Medical History: Diabetes Mellitus, Cancer, Coronary Artery Disease and Hypertension Social History Does patient currently use any type of tobacco product: Yes Have you used tobacco products in the last 12 months: Yes Type of Tobacco Use: Cigarettes Does any household member use tobacco: Yes Alcohol Use: None Do you use any recreational Drugs:: No Lives With: Family Lives Where: Home Travel Risk Coronavirus risk:travel/contact w/high risk person: No Has patient experienced Coronavirus symptoms: No Infectious screening In the last 2 months have you had wt loss of >10#?: NO Have you had fever, night sweats or hemotysis?: No Have you traveled outside the country in the last 6 months?: No Isolation: Standard ROS Review of Systems Constitutional: Weakness; negative Fever Eyes: No Symptoms Reported ENTM: negative Nose Discharge or Nose Congestion Respiratoy: No Symptoms Reported; negative Moist Cough, Short of Breath or Wheezing Cardiovascular: No Symptoms Reported; negative Chest Pain Gastrointestinal/Abdominal: Abdominal Pain, Nausea and Vomiting Genitourinary: No Symptoms Reported; negative Dysuria Neurological: No Symptoms Reported; negative Headache, Weakness or Dizziness Musculoskeletal: Back Pain (CHRONIC BACK PAIN.) Integumentary: No Symptoms Reported and See HPI; negative Rash or Juandice Hematologic/Lymphatic: Easy Bleeding and Easy Bruising Endocrine: No Symptoms Reported; negative Increased Thirst or Increased Urine Psychiatric: No Symptoms Reported and Hallucinations All Other Systems: Reviewed and Negative PE Vital Signs Vital Signs: Temp Pulse Resp BP BP Pulse Ox O2 Del Method 05/27/22 20:33 18 05/27/22 19:49 99.2 F 119 H 20 160/90 98 Room Air 05/26/22 12:00 148/80 General Limitations: No Limitations General Appearance: Alert and In No Apparent Distress Head Head Exam: Normal Inspection Eyes Eye exam: Normal Appearance; negative Scleral Icterus or Conjunctival Injection ENT ENT Exam: Normal Exam, Normal Oropharynx, Normal External Ear Exam and TM's Normal Bilaterally Neck Neck Exam: Normal Inspection and Trachea Midline; negative Tenderness Chest Chest Inspection: Normal Inspection and Symmetric Chest Wall Rise; negative Tenderness Respiratory Respiratory Exam: Normal Lung Sounds Bilat; negative Accessory Muscle Use, Chest Wall Tenderness or Respiratory Distress Respiratory Exam: Bilateral: Clear to Auscultation Cardiovascular Cardiovascular Exam: Regular Rate, Normal Rhythm and Normal Heart Sounds; negative Systolic Murmur or Diastolic Murmur Abdominal Exam Abdominal Exam: Normal Bowel Sounds, Soft, Tenderness, Guarding and Rigidity Rectal Rectal Exam: Deferred Back Back Exam: Normal Inspection; negative (R) CVA Tenderness or (L) CVA Tenderness Extremeties Extremities Exam: Normal Inspection; negative Normal Capillary Refill Exam: Male: Deferred Neurologic Neurological Exam: Alert and Oriented X3; negative Motor Sensory Deficit Psychiatric Psychiatric Exam: Normal Affect and Normal Mood Skin Skin Exam: Intact; negative Rash MDM Differential Diagnosis Differential Diagnosis: Bowel Obstruction, Cholelethiasis, Constipation, Diverticular disease, Gastritus/PUD, Inflammatory BD, Pancreatitis, Urinary tract infection, Urolithiasis and Other (comments) (GI BLEEDING, EPISTAXIS.) COURSE Treatment Treatment: SEE ORDERS DONE WHILE PATIENT WAS IN ER. Consultation Consultation Comments: DISCUSSED PATIENT WITH DR. HERNANDEZ. HE WILL ADMIT PATIENT. DR. HALL WAS CONSULTED AND SAW PATIENT IN ER. Education/Counseling Education/Counseling: Patient ROR Labs Reviewed Laboratory Results Reviewed?: Yes Result Diagrams: 05/29/22 13:10 05/29/22 05:40 Laboratory: WBC 2.6 X10^3/uL (3.6-10.0) L 05/27/22 20:30 RBC 2.93 X10^6/uL (4.7-6.0) L 05/27/22 20:30 Hgb 7.7 g/dL (13.5-18.0) L 05/27/22 20:30 Hct 22.7 % (42.0-54.0) L 05/27/22 20:30 MCV 77.6 fL (80.0-100.0) L 05/27/22 20:30 MCH 26.4 pg (27.0-34.0) L 05/27/22 20:30 MCHC 34.0 g/dL (33.0-35.0) 05/27/22 20: RDW 19.2 % (11.6-16.5) H 05/27/22 20:30 Plt Count 103 X10^3/uL (150.0-450.0) L 05/27/22 20:30 MPV 7.8 fL (7.4-11.0) 05/27/22 20:30 Neut % (Auto) 56.4 % (42.0-75.0) 05/27/22 20:30 Lymph % (Auto) 33.1 % (21.0-51.0) 05/27/22 20:30 [place] % (Auto) 8.2 % (0.0-13.0) 05/27/22 20:30 Eos % (Auto) 1.7 % (0.9-2.9) 05/27/22 20:30 Baso % (Auto) 0.6 % (0.2-1.0) 05/27/22 20:30 Neut # (Auto) 1.5 x10^3/uL (2.2-4.8) L 05/27/22 20:30 Lymph # (Auto) 0.9 X10^3/uL (1.3-2.9) L 05/27/22 20:30 [place] # (Auto) 0.2 x10^3/uL (0.3-0.8) L 05/27/22 20:30 Eos # (Auto) 0.0 x10^3/uL (0.0-0.2) 05/27/22 20:30 Baso # (Auto) 0.0 X10^3/uL (0.0-0.1) 05/27/22 20:30 Absolute Nucleated RBC 0.1 /100WBC 05/27/22 20:30 Sodium 142 mmol/L (136-145) 05/27/22 20:30 Corrected Sodium TNP 05/27/22 20:30 Potassium 3.2 mmol/L (3.5-5.1) L 05/27/22 20:30 Chloride 109 mmol/L (98-107) H 05/27/22 20:30 Carbon Dioxide 22.8 mmol/L (21-32) 05/27/22 20:30 BUN 4 mg/dL (7-18) L 05/27/22 20:30 Creatinine 0.77 mg/dL (0.70-1.30) 05/27/22 20:30 Est GFR (MDRD) Af Amer > 60 (>60) 05/27/22 20:30 Est GFR (MDRD) Non-Af > 60 (>60) 05/27/22 20:30 Glucose 96 mg/dL (65-99) 05/27/22 20:30 Calcium 8.4 mg/dL (8.5-10.1) L 05/27/22 20:30 Corrected Calcium 9.2 mg/dL (8.5-10.1) 05/27/22 20:30 Total Bilirubin 1.40 mg/dL (0.2-1.0) H 05/27/22 20:30 AST 48 Units/L (15-37) H 05/27/22 20:30 ALT 28 Units/L (12-78) 05/27/22 20:30 Alkaline Phosphatase 160 Units/L (46-116) H 05/27/22 20:30 Total Protein 5.8 g/dL (6.4-8.2) L 05/27/22 20:30 Albumin 3.0 g/dL (3.4-5.0) L 05/27/22 20:30 Globulin 2.8 g/dL (2.5-4.5) 05/27/22 20:30 Albumin/Globulin Ratio 1.1 Ratio (1.1-2.1) 05/27/22 20:30 Specimen Type Clean catch urine 05/27/22 20:50 Urine Color Yellow (YELLOW) 05/27/22 20:50 Urine Appearance Clear (CLEAR) 05/27/22 20:50 Urine pH 7.0 (5.0 - 8.0) 05/27/22 20:50 Ur Specific [place] 1.015 (1.000-1.030) 05/27/22 20:50 Urine Protein Negative (NEGATIVE) 05/27/22 20:50 Urine Glucose (UA) Negative (NEGATIVE) 05/27/22 20:50 Urine Ketones Negative (NEGATIVE) 05/27/22 20:50 Urine Blood Negative (NEGATIVE) 05/27/22 20:50 Urine Nitrite Negative (NEGATIVE) 05/27/22 20:50 Urine Bilirubin Negative (NEGATIVE) 05/27/22 20:50 Urine Urobilinogen 2+ (NORMAL) 05/27/22 20:50 Ur Leukocyte Esterase Negative (NEGATIVE) 05/27/22 20:50 Urine RBC 0-2 /HPF (0-3) 05/27/22 20:50 Urine WBC 0-2 /HPF (0-5) 05/27/22 20:50 Ur Squamous Epith Cells Few /HPF (NEGATIVE) 05/27/22 20:50 Amorphous Sediment 1+ /HPF (NEGATIVE) 05/27/22 20:50 Urine Bacteria Trace /HPF (NEGATIVE) 05/27/22 20:50 Hyaline Casts Few /LPF (NEGATIVE) 05/27/22 20:50 Coarse Granular Casts Rare /HPF (NEGATIVE) 05/27/22 20:50 Urine Mucus Few /HPF (NEGATIVE) 05/27/22 20:50 Ur Culture Indicated? No/not indicated 05/27/22 20:50 XRAY XRAY Interpreted by: Radiologist (REPORT NOTED.) and Self Opioid Opioid Risk Tool Age (Tristen box if 16-45): Yes History of Preadolescent Sexual Abuse: No Total: 1 Total Score Risk Category: Low Risk Copyright: Froilan MARINA predicting aberrant behaviors Discharge Plan Diagnosis Discharge Problem: Abdominal pain, Abdominal distension, Acute GI bleeding, Pancytopenia Discharge Plan Patient Disposition: 09 ADMITTED INPATIENT Condition: Stable Discharge Comment[facility]
[2022-05-27] MEDS ORDERED: DEMEROL INJ ONE (20:28)
[2022-05-27] MEDS ORDERED: ZOFRAN INJ 4 MG VIAL ONE (20:28)
[2022-05-27 20:44] LABS: HEMOGLOBIN 7.7 g/dL (13.5-18.0); MEAN CORPUSCULAR HEMOGLOBIN 26.4 pg (27.0-34.0); MEAN CORPUSCULAR VOLUME 77.6 fL (80.0-100.0); MONOCYTES # (AUTO) 0.2 x10^3/uL (0.3-0.8); WHITE BLOOD COUNT 2.6 X10^3/uL (3.6-10.0)
[2022-05-27 20:47] LABS: BASOPHILS % (AUTO) 0.6 % (0.2-1.0); EOSINOPHILS % (AUTO) 1.7 % (0.9-2.9); HEMATOCRIT 22.7 % (42.0-54.0); LYMPHOCYTES # (AUTO) 0.9 X10^3/uL (1.3-2.9); LYMPHOCYTES % (AUTO) 33.1 % (21.0-51.0); MEAN PLATELET VOLUME 7.8 fL (7.4-11.0); MONOCYTES % (AUTO) 8.2 % (0.0-13.0); NEUTROPHILS # (AUTO) 1.5 x10^3/uL (2.2-4.8); NEUTROPHILS % (AUTO) 56.4 % (42.0-75.0); RED BLOOD COUNT 2.93 X10^6/uL (4.7-6.0); RED CELL DISTRIBUTION WIDTH 19.2 % (11.6-16.5)
[2022-05-27 20:51] LABS: ALANINE AMINOTRANSFERASE 28 Units/L (12-78); ALKALINE PHOSPHATASE 160 Units/L (46-116); ASPARTATE AMINO TRANSFERASE 48 Units/L (15-37); BLOOD UREA NITROGEN 4 mg/dL (7-18); CALCIUM 8.4 mg/dL (8.5-10.1); CARBON DIOXIDE 22.8 mmol/L (21-32); CHLORIDE 109 mmol/L (98-107); COR CA(FOR HYPOALB) 9.2 mg/dL (8.5-10.1); CREATININE 0.77 mg/dL (0.70-1.30); SODIUM 142 mmol/L (136-145); TOTAL PROTEIN 5.8 g/dL (6.4-8.2); eGFR NON BLACK RACES > 60 (>60)
[2022-05-27 21:02] LABS: BILIRUBIN,URINE NEGATIVE (NEGATIVE); BLOOD/HEMOGLOBIN,URINE NEGATIVE (NEGATIVE); GLUCOSE, URINE NEGATIVE (NEGATIVE); KETONES,URINE NEGATIVE (NEGATIVE); LEUKOCYTE ESTERASE ,URINE NEGATIVE (NEGATIVE); NITRITES,URINE NEGATIVE (NEGATIVE); PROTEIN,URINE NEGATIVE (NEGATIVE); UROBILINOGEN,URINE 2+ (NORMAL)
[2022-05-27 21:03] LABS: APPEARANCE,URINE CLEAR (CLEAR); COLOR,URINE YELLOW (YELLOW)
[2022-05-27 21:10] LABS: BACTERIA,URINE TRACE /HPF (NEGATIVE); RBC,URINE 0-2 /HPF (0-3); SQUAMOUS EPITHELIAL CELL,UR FEW /HPF (NEGATIVE)
[2022-05-27 21:11] LABS: COARSE GRANULAR CASTS,URINE RARE /HPF (NEGATIVE); HYALINE CASTS, URINE FEW /LPF (NEGATIVE)
[2022-05-27] MEDS ORDERED: K-DUR TAB 20 MEQ PO ONE (21:22)
[2022-05-27] MEDS: K-DUR TAB 20 MEQ PO SCH (21:25)
--- NOTE | 2022-05-27 21:30 | CT ---
PROCEDURE: CT Abdomen and Pelvis without Contrast .HISTORY: Abdomen pain and distension with colonoscopy yesterday.TECHNIQUE: Axial images were performed through the abdomen and pelvis without the administration of IV contrast with multiplanar reformations . Oral contrast was not administered . Dose reduction techniques including Automated Exposure Control (AEC) and adjustment of mA and kV were utilized .COMPARISON: 04/25/2022.TECHNICAL QUALITY: Satisfactory .FINDINGS:Mild linear scar versus discoid atelectasis lung bases.Unchanged cirrhosis and splenomegaly. Adrenals and pancreas show no abnormality.Kidneys show no stones or obstruction.Moderate ascites is unchanged. No pneumoperitoneum.Normal aorta.No lymphadenopathy.Continued prominent mucosa jejunum may represent jejunitis that is probably infectious or related to inflammatory bowel disease. No bowel obstruction. Retained contrast in the colon. Normal appendix.Pelvis is full fluid and unchanged with no masses. Normal urinary bladder.Stranding throughout body fat consistent with anasarca.No acute bony abnormality. Previous anterior fusion L5-S1.IMPRESSION:1. Unchanged cirrhosis with splenomegaly and ascites.2. Jejunitis that could be infectious or related to inflammatory bowel disease.3. No bowel obstruction or ileus.4. Unchanged anasarca.5. No other significant abnormality identified.Electronically signed by: Jay Hunter (May 27, 2022 21:28:35)
[2022-05-27] MEDS ORDERED: ZOFRAN INJ 4 MG VIAL IVP PRN (22:42)
[2022-05-27] MEDS: NS 1,000 ML IV 1,000 ML IV SCH (23:38)
[2022-05-27] MEDS: PERCOCET TAB 5/325 MG PO PRN (23:39)
[2022-05-27 23:40] VITALS: BMI 35.6
[2022-05-28 06:04] LABS: BASOPHILS % (AUTO) 1.2 % (0.2-1.0); EOSINOPHILS % (AUTO) 2.1 % (0.9-2.9); HEMATOCRIT 22.9 % (42.0-54.0); HEMOGLOBIN 7.6 g/dL (13.5-18.0); LYMPHOCYTES # (AUTO) 0.9 X10^3/uL (1.3-2.9); LYMPHOCYTES % (AUTO) 40.8 % (21.0-51.0); MEAN CORPUSCULAR HEMOGLOBIN 25.9 pg (27.0-34.0); MEAN CORPUSCULAR HGB CONC 33.2 g/dL (33.0-35.0); MEAN CORPUSCULAR VOLUME 77.9 fL (80.0-100.0); MEAN PLATELET VOLUME 7.9 fL (7.4-11.0); MONOCYTES # (AUTO) 0.2 x10^3/uL (0.3-0.8); MONOCYTES % (AUTO) 10.6 % (0.0-13.0); NEUTROPHILS % (AUTO) 45.3 % (42.0-75.0); RED BLOOD COUNT 2.94 X10^6/uL (4.7-6.0); WHITE BLOOD COUNT 2.3 X10^3/uL (3.6-10.0)
[2022-05-28 06:11] LABS: ALANINE AMINOTRANSFERASE 24 Units/L (12-78); ALBUMIN 2.9 g/dL (3.4-5.0); ALKALINE PHOSPHATASE 160 Units/L (46-116); ASPARTATE AMINO TRANSFERASE 45 Units/L (15-37); BLOOD UREA NITROGEN 5 mg/dL (7-18); CALCIUM 8.2 mg/dL (8.5-10.1); CARBON DIOXIDE 24.8 mmol/L (21-32); CHLORIDE 109 mmol/L (98-107); COR CA(FOR HYPOALB) 9.1 mg/dL (8.5-10.1); CREATININE 0.78 mg/dL (0.70-1.30); SODIUM 141 mmol/L (136-145); TOTAL PROTEIN 5.8 g/dL (6.4-8.2); eGFR NON BLACK RACES > 60 (>60)
[2022-05-28] MEDS: PERCOCET TAB 5/325 MG PO PRN ×3 (06:14→19:43)
[2022-05-28] MEDS ORDERED: KLOR-CON PO PRN (06:18)
[2022-05-28] MEDS ORDERED: K-DUR TAB 20 MEQ PO PRN (06:18)
[2022-05-28] MEDS ORDERED: POTASSIUM CHLORIDE LIQ 20 MEQ UDC PO PRN (06:18)
[2022-05-28] MEDS: MAGNESIUM SULFATE 1 GRAM/100 mL PREMIX 1 G/100 ML BAG IV PRN ×2 (06:32→08:24)
[2022-05-28 06:47] LABS: ANISOCYTOSIS SLIGHT; HYPOCHROMASIA SLIGHT; MICROCYTOSIS SLIGHT; PLATELET MORPHOLOGY COMMENT NORMAL (NORMAL)
[2022-05-28] MEDS: K-DUR TAB 20 MEQ PO SCH (08:24)
[2022-05-28] MEDS: NS 1,000 ML IV 1,000 ML IV SCH ×2 (08:25→19:47)
[2022-05-28] MEDS: PROTONIX INJ 40 MG VIAL IVP SCH ×2 (09:20→20:24)
--- NOTE | 2022-05-28 12:04 | DR.H&P ---
H&P History & Physical for Day of: H&P Date: 05/27/22 Chief Complaint Chief Complaint: Coffee-ground emesis and bloody bowel movements. Allergies Allergies Allergy/AdvReac Type Severity Reaction Status Date / Time No Known Drug Allergies Allergy Verified 05/23/22 23:29 History of Present Illness History of Present Illness: This is a 36-year-old white male who had been discharged from hospital yesterday. He had recently been admitted for GI bleed and had a EGD and a colonoscopy. He had a couple polyps removed had a CT of the abdomen that showed some gastrointestinal bleeding. Today he is back with diffuse abdominal pain and reports of coffee-ground emesis, nasal bleeding and bright red blood per rectum. He reports that his vomitus is more of a shaun colored not dark black coffee-ground like though he reports. Of note his hemoglobin is 7.7 which is down from 7.8 at discharge on the previous day. Because of the patient's symptoms and ongoing GI bleed we elected to go ahead and readmit him to the hospital and start him on Protonix 40 mg IV every 12 hours. We will give him Demerol for pain control and reconsult with Dr. Stacy for further follow-up regarding the bleeding. Past Medical History Past Medical History: Anemia, Anxiety, Hypertension and Kidney Stones Additional Medical History: Hx of Degenerative Disc Disease, Hormone Disorder Past Surgical History Surgical History: Cholecystectomy, Ortho Surgery and Lithotripsy Additional Surgical History: Hx of Lumbar Disc Replacement(2014), Pilonidal Cyst Removal(2000), Fistula Removal(2000) Family History Family Medical History: Diabetes Mellitus, Cancer, Coronary Artery Disease and Hypertension Social History Does patient currently use any type of tobacco product: Yes Have you used tobacco products in the last 12 months: Yes Type of Tobacco Use: Cigarettes Does any household member use tobacco: Yes Alcohol Use: None Drug Use: None Medications Home Medications: No Known Drug Allergies Allergy (Verified 05/23/22 23:29) Labs Result Diagrams: 05/28/22 05:30 05/28/22 05:30 Labs: Laboratory WBC 2.3 X10^3/uL (3.6-10.0) L 05/28/22 05:30 RBC 2.94 X10^6/uL (4.7-6.0) L 05/28/22 05:30 Hgb 7.6 g/dL (13.5-18.0) L 05/28/22 05:30 Hct 22.9 % (42.0-54.0) L 05/28/22 05:30 MCV 77.9 fL (80.0-100.0) L 05/28/22 05:30 MCH 25.9 pg (27.0-34.0) L 05/28/22 05:30 MCHC 33.2 g/dL (33.0-35.0) 05/28/22 05:30 RDW 19.0 % (11.6-16.5) H 05/28/22 05:30 Plt Count 104 X10^3/uL (150.0-450.0) L 05/28/22 05:30 Plt Count Comment Decreased (ADEQUATE) 05/28/22 05:30 MPV 7.9 fL (7.4-11.0) 05/28/22 05:30 Neut % (Auto) 45.3 % (42.0-75.0) 05/28/22 05:30 Lymph % (Auto) 40.8 % (21.0-51.0) 05/28/22 05:30 [place] % (Auto) 10.6 % (0.0-13.0) 05/28/22 05:30 Eos % (Auto) 2.1 % (0.9-2.9) 05/28/22 05:30 Baso % (Auto) 1.2 % (0.2-1.0) H 05/28/22 05:30 Neut # (Auto) 1.0 x10^3/uL (2.2-4.8) L 05/28/22 05:30 Lymph # (Auto) 0.9 X10^3/uL (1.3-2.9) L 05/28/22 05:30 [place] # (Auto) 0.2 x10^3/uL (0.3-0.8) L 05/28/22 05:30 Eos # (Auto) 0.0 x10^3/uL (0.0-0.2) 05/28/22 05:30 Baso # (Auto) 0.0 X10^3/uL (0.0-0.1) 05/28/22 05:30 Absolute Nucleated RBC 0.2 /100WBC 05/28/22 05:30 Total Counted 100 05/28/22 05:30 Neutrophils % (Manual) 46 % (39-76) 05/28/22 05:30 Lymphocytes % (Manual) 43 % (13-43) 05/28/22 05:30 Monocytes % (Manual) 10 % (4-9) H 05/28/22 05:30 Eosinophils % (Manual) 1 % (0-6) 05/28/22 05:30 Plt Morphology Comment Normal (NORMAL) 05/28/22 05:30 RBC Morphology Abnormal (NORMAL) 05/28/22 05:30 Hypochromasia Slight A 05/28/22 05:30 Anisocytosis Slight A 05/28/22 05:30 Microcytosis Slight A 05/28/22 05:30 Sodium 141 mmol/L (136-145) 05/28/22 05:30 Corrected Sodium TNP 05/28/22 05:30 Potassium 3.3 mmol/L (3.5-5.1) L 05/28/22 05:30 Chloride 109 mmol/L (98-107) H 05/28/22 05:30 Carbon Dioxide 24.8 mmol/L (21-32) 05/28/22 05:30 BUN 5 mg/dL (7-18) L 05/28/22 05:30 Creatinine 0.78 mg/dL (0.70-1.30) 05/28/22 05:30 Est GFR (MDRD) Af Amer > 60 (>60) 05/28/22 05:30 Est GFR (MDRD) Non-Af > 60 (>60) 05/28/22 05:30 Glucose 82 mg/dL (65-99) 05/28/22 05:30 Calcium 8.2 mg/dL (8.5-10.1) L 05/28/22 05:30 Corrected Calcium 9.1 mg/dL (8.5-10.1) 05/28/22 05:30 Magnesium 1.6 mg/dL (2.0-2.9) L 05/28/22 05:30 Total Bilirubin 1.70 mg/dL (0.2-1.0) H 05/28/22 05:30 AST 45 Units/L (15-37) H 05/28/22 05:30 ALT 24 Units/L (12-78) 05/28/22 05:30 Alkaline Phosphatase 160 Units/L (46-116) H 05/28/22 05:30 Total Protein 5.8 g/dL (6.4-8.2) L 05/28/22 05:30 Albumin 2.9 g/dL (3.4-5.0) L 05/28/22 05:30 Globulin 2.9 g/dL (2.5-4.5) 05/28/22 05:30 Albumin/Globulin Ratio 1.0 Ratio (1.1-2.1) L 05/28/22 05:30 Specimen Type Clean catch urine 05/27/22 20:50 Urine Color Yellow (YELLOW) 05/27/22 20:50 Urine Appearance Clear (CLEAR) 05/27/22 20:50 Urine pH 7.0 (5.0 - 8.0) 05/27/22 20:50 Ur Specific [place] 1.015 (1.000-1.030) 05/27/22 20:50 Urine Protein Negative (NEGATIVE) 05/27/22 20:50 Urine Glucose (UA) Negative (NEGATIVE) 05/27/22 20:50 Urine Ketones Negative (NEGATIVE) 05/27/22 20:50 Urine Blood Negative (NEGATIVE) 05/27/22 20:50 Urine Nitrite Negative (NEGATIVE) 05/27/22 20:50 Urine Bilirubin Negative (NEGATIVE) 05/27/22 20:50 Urine Urobilinogen 2+ (NORMAL) 05/27/22 20:50 Ur Leukocyte Esterase Negative (NEGATIVE) 05/27/22 20:50 Urine RBC 0-2 /HPF (0-3) 05/27/22 20:50 Urine WBC 0-2 /HPF (0-5) 05/27/22 20:50 Ur Squamous Epith Cells Few /HPF (NEGATIVE) 05/27/22 20:50 Amorphous Sediment 1+ /HPF (NEGATIVE) 05/27/22 20:50 Urine Bacteria Trace /HPF (NEGATIVE) 05/27/22 20:50 Hyaline Casts Few /LPF (NEGATIVE) 05/27/22 20:50 Coarse Granular Casts Rare /HPF (NEGATIVE) 05/27/22 20:50 Urine Mucus Few /HPF (NEGATIVE) 05/27/22 20:50 Ur Culture Indicated? No/not indicated 05/27/22 20:50 Review of Systems Constitutional: Weakness and Malaise Eyes: No Symptoms Reported ENT: No Symptoms Reported Respiratory: No Symptoms Reported Cardiovascular: No Symptoms Reported Gastrointestinal: Nausea, Abdominal Pain and Hematochezia Genitourinary: No Symptoms Reported Musculoskeletal: No Symptoms Reported Skin: No Symptoms Reported Neurological: No Symptoms Reported Physical Exam Vital Signs: Temperature 97.9 F Pulse Rate [Left] 90 Pulse Rate 119 Respiratory Rate 18 Blood Pressure [Left Arm] 138/82 Blood Pressure 160/90 O2 Sat by Pulse Oximetry 96 Oriented: Normal Eyes: Normal Ear: Normal Nose: Normal Throat: Normal Respiratory: Clear Throughout Cardiovascular: Normal Auscultation: Bowel Sounds: Normal Palpation: Normal Tenderness: Diffuse Skin: Normal Musculoskeletal: Normal Psychiatric: Normal Mood Description: Calm Affect: Normal Speech Pattern: Clear and Appropriate Assessment/Plan (1) Acute GI bleeding: Status: Acute Plan: Protonix 40 mg IV every 12 hours. Consult general surgery, Dr. Stacy. Recheck hemoglobin and hematocrit at 1500 this afternoon. We will transfuse if hemoglobin drops below 7. (2) Hypertension: Status: Chronic (3) Degenerative disc disease: Status: Chronic (4) Abdominal pain: Status: Acute Plan: As needed Demerol for pain control. (5) Abdominal distension: Status: Acute
--- NOTE | 2022-05-28 12:08 | PCM.PROG ---
Progress Note Progress Note for Day of Date of Exam: 05/28/22 Subjective Subjective: Patient currently lying in bed and is pain is better controlled he reports. He reports he been having some nasal bleeding and vomiting up up rust colored blood he reports. He still reports some blood when he has bowel movements. Hemoglobin stable 7.6. Is down from 7.7 yesterday. 1 previous day was 7.8. Platelet count this morning is 104,000. Potassium was noted to be slightly low at 3.3 this morning so we will replace it with potassium replacement protocol. We will also consult general surgeon, Dr. Stacy to see if he wants to do any further EGDs or repeat colonoscopy. Continue IV Protonix at this time and Demerol for pain control. We will repeat a H&H at 1500 this afternoon. We will transfuse him if his vital signs become unstable. Past Medical Family Social History Allergies: Allergies No Known Drug Allergies Allergy (Verified 05/23/22 23:29) Review of Systems ROS: No change since H&P Vital Signs and I&O's Vital Signs: Temperature 97.9 F Pulse Rate [Left] 90 Pulse Rate 119 Respiratory Rate 18 Blood Pressure [Left Arm] 138/82 Blood Pressure 160/90 O2 Sat by Pulse Oximetry 96 Intake and Output: Intake & Output 05/26/22 05/27/22 05/28/22 05/29/22 11:59 11:59 11:59 11:59 Intake Total 702 / 702 Balance 702 / 702 Physical Exam Oriented: Normal Eyes: Normal Ear: Normal Nose: Normal Throat: Normal Respiratory: Normal Cardiovascular: Normal Auscultation: Bowel Sounds: Normal Tenderness: Diffuse Skin: Normal Musculoskeletal: Normal Psychiatric: Normal Mood Description: Calm Affect: Normal Speech Pattern: Clear and Appropriate Laboratory and Diagnostics Result Diagrams: 05/28/22 05:30 05/28/22 05:30 Labs: Laboratory WBC 2.3 X10^3/uL (3.6-10.0) L 05/28/22 05:30 RBC 2.94 X10^6/uL (4.7-6.0) L 05/28/22 05:30 Hgb 7.6 g/dL (13.5-18.0) L 05/28/22 05:30 Hct 22.9 % (42.0-54.0) L 05/28/22 05:30 MCV 77.9 fL (80.0-100.0) L 05/28/22 05:30 MCH 25.9 pg (27.0-34.0) L 05/28/22 05:30 MCHC 33.2 g/dL (33.0-35.0) 05/28/22 05:30 RDW 19.0 % (11.6-16.5) H 05/28/22 05:30 Plt Count 104 X10^3/uL (150.0-450.0) L 05/28/22 05:30 Plt Count Comment Decreased (ADEQUATE) 05/28/22 05:30 MPV 7.9 fL (7.4-11.0) 05/28/22 05:30 Neut % (Auto) 45.3 % (42.0-75.0) 05/28/22 05:30 Lymph % (Auto) 40.8 % (21.0-51.0) 05/28/22 05:30 [place] % (Auto) 10.6 % (0.0-13.0) 05/28/22 05:30 Eos % (Auto) 2.1 % (0.9-2.9) 05/28/22 05:30 Baso % (Auto) 1.2 % (0.2-1.0) H 05/28/22 05:30 Neut # (Auto) 1.0 x10^3/uL (2.2-4.8) L 05/28/22 05:30 Lymph # (Auto) 0.9 X10^3/uL (1.3-2.9) L 05/28/22 05:30 [place] # (Auto) 0.2 x10^3/uL (0.3-0.8) L 05/28/22 05:30 Eos # (Auto) 0.0 x10^3/uL (0.0-0.2) 05/28/22 05:30 Baso # (Auto) 0.0 X10^3/uL (0.0-0.1) 05/28/22 05:30 Absolute Nucleated RBC 0.2 /100WBC 05/28/22 05:30 Total Counted 100 05/28/22 05:30 Neutrophils % (Manual) 46 % (39-76) 05/28/22 05:30 Lymphocytes % (Manual) 43 % (13-43) 05/28/22 05:30 Monocytes % (Manual) 10 % (4-9) H 05/28/22 05:30 Eosinophils % (Manual) 1 % (0-6) 05/28/22 05:30 Plt Morphology Comment Normal (NORMAL) 05/28/22 05:30 RBC Morphology Abnormal (NORMAL) 05/28/22 05:30 Hypochromasia Slight A 05/28/22 05:30 Anisocytosis Slight A 05/28/22 05:30 Microcytosis Slight A 05/28/22 05:30 Sodium 141 mmol/L (136-145) 05/28/22 05:30 Corrected Sodium TNP 05/28/22 05:30 Potassium 3.3 mmol/L (3.5-5.1) L 05/28/22 05:30 Chloride 109 mmol/L (98-107) H 05/28/22 05:30 Carbon Dioxide 24.8 mmol/L (21-32) 05/28/22 05:30 BUN 5 mg/dL (7-18) L 05/28/22 05:30 Creatinine 0.78 mg/dL (0.70-1.30) 05/28/22 05:30 Est GFR (MDRD) Af Amer > 60 (>60) 05/28/22 05:30 Est GFR (MDRD) Non-Af > 60 (>60) 05/28/22 05:30 Glucose 82 mg/dL (65-99) 05/28/22 05:30 Calcium 8.2 mg/dL (8.5-10.1) L 05/28/22 05:30 Corrected Calcium 9.1 mg/dL (8.5-10.1) 05/28/22 05:30 Magnesium 1.6 mg/dL (2.0-2.9) L 05/28/22 05:30 Total Bilirubin 1.70 mg/dL (0.2-1.0) H 05/28/22 05:30 AST 45 Units/L (15-37) H 05/28/22 05:30 ALT 24 Units/L (12-78) 05/28/22 05:30 Alkaline Phosphatase 160 Units/L (46-116) H 05/28/22 05:30 Total Protein 5.8 g/dL (6.4-8.2) L 05/28/22 05:30 Albumin 2.9 g/dL (3.4-5.0) L 05/28/22 05:30 Globulin 2.9 g/dL (2.5-4.5) 05/28/22 05:30 Albumin/Globulin Ratio 1.0 Ratio (1.1-2.1) L 05/28/22 05:30 Specimen Type Clean catch urine 05/27/22 20:50 Urine Color Yellow (YELLOW) 05/27/22 20:50 Urine Appearance Clear (CLEAR) 05/27/22 20:50 Urine pH 7.0 (5.0 - 8.0) 05/27/22 20:50 Ur Specific [place] 1.015 (1.000-1.030) 05/27/22 20:50 Urine Protein Negative (NEGATIVE) 05/27/22 20:50 Urine Glucose (UA) Negative (NEGATIVE) 05/27/22 20:50 Urine Ketones Negative (NEGATIVE) 05/27/22 20:50 Urine Blood Negative (NEGATIVE) 05/27/22 20:50 Urine Nitrite Negative (NEGATIVE) 05/27/22 20:50 Urine Bilirubin Negative (NEGATIVE) 05/27/22 20:50 Urine Urobilinogen 2+ (NORMAL) 05/27/22 20:50 Ur Leukocyte Esterase Negative (NEGATIVE) 05/27/22 20:50 Urine RBC 0-2 /HPF (0-3) 05/27/22 20:50 Urine WBC 0-2 /HPF (0-5) 05/27/22 20:50 Ur Squamous Epith Cells Few /HPF (NEGATIVE) 05/27/22 20:50 Amorphous Sediment 1+ /HPF (NEGATIVE) 05/27/22 20:50 Urine Bacteria Trace /HPF (NEGATIVE) 05/27/22 20:50 Hyaline Casts Few /LPF (NEGATIVE) 05/27/22 20:50 Coarse Granular Casts Rare /HPF (NEGATIVE) 05/27/22 20:50 Urine Mucus Few /HPF (NEGATIVE) 05/27/22 20:50 Ur Culture Indicated? No/not indicated 05/27/22 20:50 Plan (1) Acute GI bleeding: Status: Acute Plan: Protonix 40 mg IV every 12 hours. Consult general surgery, Dr. Stacy. Recheck hemoglobin and hematocrit at 1500 this afternoon. We will transfuse if hemoglobin drops below 7. (2) Hypertension: Status: Chronic Narrative Support Text: Blood pressure stable at 138/82 with a heart rate of 90. (3) Degenerative disc disease: Status: Chronic Plan: Pain control if needed. (4) Abdominal pain: Status: Acute Plan: As needed Demerol for pain control. (5) Abdominal distension: Status: Acute Plan: Monitor for improvement.
[2022-05-28] MEDS ORDERED: SOLU-Medrol 125 MG VIAL ONE (13:00)
[2022-05-28 15:18] LABS: HEMATOCRIT 22.3 % (42.0-54.0); HEMOGLOBIN 7.6 g/dL (13.5-18.0)
[2022-05-28] MEDS ORDERED: LEVSIN/MAALOX/LIDOC VISC PO ONE (22:00)
[2022-05-28] MEDS ORDERED: LEVSIN/MAALOX/LIDOC VISC ONE (22:04)
[2022-05-29] MEDS: PERCOCET TAB 5/325 MG PO PRN ×3 (01:35→15:05)
[2022-05-29] MEDS: NS 1,000 ML IV 1,000 ML IV SCH ×2 (06:10→18:46)
[2022-05-29 06:12] LABS: BASOPHILS % (AUTO) 0.5 % (0.2-1.0); EOSINOPHILS # (AUTO) 0.1 x10^3/uL (0.0-0.2); EOSINOPHILS % (AUTO) 1.9 % (0.9-2.9); HEMATOCRIT 23.4 % (42.0-54.0); HEMOGLOBIN 7.9 g/dL (13.5-18.0); LYMPHOCYTES # (AUTO) 0.8 X10^3/uL (1.3-2.9); LYMPHOCYTES % (AUTO) 27.4 % (21.0-51.0); MEAN CORPUSCULAR HEMOGLOBIN 26.4 pg (27.0-34.0); MEAN CORPUSCULAR VOLUME 77.8 fL (80.0-100.0); MEAN PLATELET VOLUME 7.6 fL (7.4-11.0); MONOCYTES # (AUTO) 0.3 x10^3/uL (0.3-0.8); MONOCYTES % (AUTO) 9.5 % (0.0-13.0); NEUTROPHILS # (AUTO) 1.8 x10^3/uL (2.2-4.8); NEUTROPHILS % (AUTO) 60.7 % (42.0-75.0); RED BLOOD COUNT 3.01 X10^6/uL (4.7-6.0); RED CELL DISTRIBUTION WIDTH 19.6 % (11.6-16.5)
[2022-05-29 06:31] LABS: ALANINE AMINOTRANSFERASE 25 Units/L (12-78); ALBUMIN 2.9 g/dL (3.4-5.0); ALKALINE PHOSPHATASE 165 Units/L (46-116); ASPARTATE AMINO TRANSFERASE 37 Units/L (15-37); BLOOD UREA NITROGEN 3 mg/dL (7-18); CALCIUM 8.3 mg/dL (8.5-10.1); CARBON DIOXIDE 23.6 mmol/L (21-32); CHLORIDE 106 mmol/L (98-107); COR CA(FOR HYPOALB) 9.2 mg/dL (8.5-10.1); CREATININE 0.83 mg/dL (0.70-1.30); MAGNESIUM 1.6 mg/dL (2.0-2.9); SODIUM 139 mmol/L (136-145); TOTAL PROTEIN 5.8 g/dL (6.4-8.2); eGFR NON BLACK RACES > 60 (>60)
[2022-05-29] MEDS: K-DUR TAB 20 MEQ PO SCH (08:44)
[2022-05-29] MEDS: PROTONIX INJ 40 MG VIAL IVP SCH (08:45)
[2022-05-29] MEDS: MAGNESIUM SULFATE 1 GRAM/100 mL PREMIX 1 G/100 ML BAG IV PRN ×2 (08:45→10:44)
--- NOTE | 2022-05-29 10:15 | RAD ---
HISTORYGI BLEED, ABDOMINAL DISTENTION.br Relevant Clinical InformationSTUDYACUTE ABDOMEN SERIESCOMPARISONNone available.FINDINGSThe trachea is midline. The cardiac silhouette is [unremarkable]. Chronic appearing central and lower lobe interstitial changes/densities are seen. [The lungs are clear without focal mass or consolidation. There is no effusion or pneumothorax.] [The bony thorax is unremarkable].Flat plate and upright evaluation of the abdomen demonstrates a [normal bowel gas pattern]. There is no pneumoperitoneum. No pathological soft tissue mass or calcification can be observed. The bony structures are grossly intact. RUQ clips are seen in place.IMPRESSION1. [No acute cardiopulmonary disease.]2. [No evidence for acute abdominal pathology identified.]Electronically signed by: ADNAE JAVIER III (May 29, 2022 10:13:48)
[2022-05-29 13:42] LABS: BASOPHILS % (AUTO) 0.7 % (0.2-1.0); EOSINOPHILS # (AUTO) 0.1 x10^3/uL (0.0-0.2); EOSINOPHILS % (AUTO) 2.2 % (0.9-2.9); HEMATOCRIT 23.2 % (42.0-54.0); LYMPHOCYTES # (AUTO) 0.7 X10^3/uL (1.3-2.9); MEAN CORPUSCULAR HGB CONC 34.5 g/dL (33.0-35.0); MEAN CORPUSCULAR VOLUME 78.3 fL (80.0-100.0); MEAN PLATELET VOLUME 7.8 fL (7.4-11.0); MONOCYTES # (AUTO) 0.2 x10^3/uL (0.3-0.8); MONOCYTES % (AUTO) 8.8 % (0.0-13.0); NEUTROPHILS # (AUTO) 1.7 x10^3/uL (2.2-4.8); NEUTROPHILS % (AUTO) 63.3 % (42.0-75.0); RED BLOOD COUNT 2.96 X10^6/uL (4.7-6.0); RED CELL DISTRIBUTION WIDTH 19.6 % (11.6-16.5); WHITE BLOOD COUNT 2.6 X10^3/uL (3.6-10.0)
[2022-05-29 17:38] VITALS: BP 140/89
== END 2022-05-29 19:20 | disposition left against medical advice (07) ==
LOC: ER 19:48 → MED/SURG 19:48
PROVIDERS: ADMIT Family Medicine; ATTEND Internal Medicine

== ENCOUNTER 2023-02-08 13:03 | Inpatient (IN) ==
[2023-02-08 13:14] VITALS: BMI 33.2
--- NOTE | 2023-02-08 13:26 | DR.GENAD ---
HPI Time Seen Time Seen by Provider: 02/08/23 13:33 Complaint/Symptoms Chief Complaint Doctors Comments: 37 y/o male presents for evaluation. not feeling well x 3 days. Having generalized weakness. no fever, chills, URI symptoms, bowel issues. Started vomiting blood this am, bright red. Also passing reddish urine. Has been having pain across the low back. Has a h/o cirrhosis, unknown cause. Scheduled to be seen next week for possible liver biopsy. Chief Complaint:: 3 days of no energy, Sunday started hurting in my back, side, and stomach, started throwing up blood this am and possibly blood in urine. Self Treatment fo Chief Complaint: Percocet, and Protonix, and OTC nausea medication COVID-19 Coronavirus risk:travel/contact w/high risk person: No Has patient experienced Coronavirus symptoms: No Nurses notes reviewed Nurses Notes Review: Yes Source History Provided: Patient Timing Onset of Chief Complaint: 02/06/23 PMH PMH Past Medical History: Yes Past Medical History: Anemia, Anxiety, Diabetes, GERD, Hypertension and Kidney Stones Past Surgical History: Yes Surgical History: Cholecystectomy, Ortho Surgery, Lithotripsy and Other Past Surgical History Comment: elbow Family History History of Family Medical Conditions: Yes Family Medical History: Diabetes Mellitus, Cancer, Coronary Artery Disease and Hypertension Social History Does patient currently use any type of tobacco product: Yes Have you used tobacco products in the last 12 months: Yes Type of Tobacco Use: Cigarettes Does any household member use tobacco: No Alcohol Use: None Do you use any recreational Drugs:: Yes Lives With: Dad Lives Where: Home Travel Risk Coronavirus risk:travel/contact w/high risk person: No Has patient experienced Coronavirus symptoms: No Infectious screening In the last 2 months have you had wt loss of >10#?: NO Have you had fever, night sweats or hemotysis?: No Have you traveled outside the country in the last 6 months?: No Isolation: Standard ROS Review of Systems Constitutional: Malaise and Weakness Eyes: No Symptoms Reported ENTM: No Symptoms Reported Respiratoy: No Symptoms Reported Cardiovascular: No Symptoms Reported Gastrointestinal/Abdominal: See HPI Genitourinary: See HPI Neurological: Weakness Musculoskeletal: No Symptoms Reported Integumentary: No Symptoms Reported All Other Systems: Reviewed and Negative PE Vital Signs Vitals: Vital Signs Temperature 99.1 F Pulse Rate 95 Respiratory Rate 16 Respiratory Rate 16 Respiratory Rate 16 Blood Pressure 135/75 O2 Sat by Pulse Oximetry 98 General General Appearance: Alert and In No Apparent Distress Eyes Eye exam: PERRL and EOMI ENT ENT Exam: Normal Oropharynx and Mucous Membranes Moist Neck Neck Exam: Normal Inspection and Full ROM; negative Tenderness Respiratory Respiratory Exam: Normal Lung Sounds Bilat; negative Accessory Muscle Use or Respiratory Distress Cardiovascular Cardiovascular Exam: Regular Rate, Normal Rhythm and Normal Heart Sounds Abdominal Exam Abdominal Exam: Normal Bowel Sounds and Soft; negative Tenderness Extremities Extremities Exam: Edema (2+ bilateral lower exts) Back Back Exam: (R) CVA Tenderness Neurologic Neurological Exam: Alert, Oriented X3 and CN II-XII Intact; negative Motor Sensory Deficit Skin Skin Exam: Warm and Dry COURSE Treatment Treatment: 37 y/o male presents with vomiting blood, possible blood in the urine. + diagnosis of cirrhosis, unknown cause. W/u initiated. Pt given IV fluids. Labs show pancytopenia. Chemistries overall acceptable, except for low K+ 2.9, T BIli 2.1, Ammonia 47. Pt alert, not confused. Givne IV pain med for his back, IV zofran/morphine. No active vomiting here. Recommend admission for EGD in am , consulted with Dr Cody. Discussed with his MD, Dr Mccracken, accepts the admission. Given IV Protonix, will put on clear fluids tonight, NPO after midnight. ROR Labs Reviewed Laboratory Results Reviewed?: Yes 02/08/23 14:02 02/08/23 14:02 Laboratory: WBC 1.7 X10^3/uL (3.6-10.0) L* 02/08/23 14:02 RBC 3.40 X10^6/uL (4.7-6.0) L 02/08/23 14:02 Hgb 8.3 g/dL (13.5-18.0) L 02/08/23 14:02 Hct 25.7 % (42.0-54.0) L 02/08/23 14:02 MCV 75.7 fL (80.0-100.0) L 02/08/23 14:02 MCH 24.5 pg (27.0-34.0) L 02/08/23 14:02 MCHC 32.3 g/dL (33.0-35.0) L 02/08/23 14:02 RDW 19.9 % (11.6-16.5) H 02/08/23 14:02 Plt Count 91 X10^3/uL (150.0-450.0) L 02/08/23 14:02 MPV 8.4 fL (7.4-11.0) 02/08/23 14:02 Neut % (Auto) 75.3 % (42.0-75.0) H 02/08/23 14:02 Lymph % (Auto) 18.0 % (21.0-51.0) L 02/08/23 14:02 [place] % (Auto) 5.5 % (0.0-13.0) 02/08/23 14:02 Eos % (Auto) 0.8 % (0.9-2.9) L 02/08/23 14:02 Baso % (Auto) 0.4 % (0.2-1.0) 02/08/23 14:02 Neut # (Auto) 1.3 x10^3/uL (2.2-4.8) L 02/08/23 14:02 Lymph # (Auto) 0.3 X10^3/uL (1.3-2.9) L 02/08/23 14:02 [place] # (Auto) 0.1 x10^3/uL (0.3-0.8) L 02/08/23 14:02 Eos # (Auto) 0.0 x10^3/uL (0.0-0.2) 02/08/23 14:02 Baso # (Auto) 0.0 X10^3/uL (0.0-0.1) 02/08/23 14:02 Absolute Nucleated RBC 0.3 /100WBC 02/08/23 14:02 PT 20.1 SECONDS (11.8-14.3) 02/08/23 14:02 INR Target Range - 02/08/23 14:02 INR 1.75 (0.8-1.3) H 02/08/23 14:02 APTT 43.0 SECONDS (22.9-36.5) H 02/08/23 14:02 PTT Comment - 02/08/23 14:02 Sodium 146 mmol/L (136-145) H 02/08/23 14:02 Corrected Sodium 147 mmol/L (136-145) H 02/08/23 14:02 Potassium 2.9 mmol/L (3.5-5.1) L* 02/08/23 14:02 Chloride 109 mmol/L (98-107) H 02/08/23 14:02 Carbon Dioxide 27.1 mmol/L (21-32) 02/08/23 14:02 BUN 5 mg/dL (7-18) L 02/08/23 14:02 Creatinine 0.87 mg/dL (0.70-1.30) 02/08/23 14:02 Est GFR (MDRD) Af Amer > 60 (>60) 02/08/23 14:02 Est GFR (MDRD) Non-Af > 60 (>60) 02/08/23 14:02 Glucose 121 mg/dL (65-99) H 02/08/23 14:02 Calcium 7.7 mg/dL (8.5-10.1) L 02/08/23 14:02 Corrected Calcium 8.3 mg/dL (8.5-10.1) L 02/08/23 14:02 Total Bilirubin 2.10 mg/dL (0.2-1.0) H 02/08/23 14:02 AST 32 Units/L (15-37) 02/08/23 14:02 ALT 15 Units/L (12-78) 02/08/23 14:02 Alkaline Phosphatase 171 Units/L (46-116) H 02/08/23 14:02 Ammonia 47 umol/L (11-32) H 02/08/23 14:02 Troponin I High Sens 10.0 ng/L (4.0-60.0) 02/08/23 14:02 Total Protein 5.6 g/dL (6.4-8.2) L 02/08/23 14:02 Albumin 3.3 g/dL (3.4-5.0) L 02/08/23 14:02 Globulin 2.3 g/dL (2.5-4.5) L 02/08/23 14:02 Albumin/Globulin Ratio 1.4 Ratio (1.1-2.1) 02/08/23 14:02 Lipase 58 Units/L (73-393) L 02/08/23 14:02 Specimen Type Clean catch urine 02/08/23 13:34 Urine Color Dark yellow (YELLOW) 02/08/23 13:34 Urine Appearance Clear (CLEAR) 02/08/23 13:34 Urine pH 7.0 (5.0 - 8.0) 02/08/23 13:34 Ur Specific [place] 1.015 (1.000-1.030) 02/08/23 13:34 Urine Protein 2+ (NEGATIVE) 02/08/23 13:34 Urine Glucose (UA) Negative (NEGATIVE) 02/08/23 13:34 Urine Ketones Negative (NEGATIVE) 02/08/23 13:34 Urine Blood 2+ (NEGATIVE) 02/08/23 13:34 Urine Nitrite Negative (NEGATIVE) 02/08/23 13:34 Urine Bilirubin 1+ (NEGATIVE) 02/08/23 13:34 Urine Urobilinogen 2+ (NORMAL) 02/08/23 13:34 Ur Leukocyte Esterase 1+ (NEGATIVE) 02/08/23 13:34 Urine RBC 10-20 /HPF (0-3) A 02/08/23 13:34 Urine WBC 0-2 /HPF (0-5) 02/08/23 13:34 Ur Squamous Epith Cells Few /HPF (NEGATIVE) 02/08/23 13:34 Urine Bacteria Trace /HPF (NEGATIVE) 02/08/23 13:34 Urine Mucus Moderate /HPF (NEGATIVE) 02/08/23 13:34 Ur Culture Indicated? No/not indicated 02/08/23 13:34 XRAY XRAY Interpreted by: Radiologist X-ray Results: EXAM: CT ABDOMEN AND PELVIS WITH INTRAVENOUS CONTRAST HISTORY: Cirrhosis. Vomiting blood. TECHNIQUE: Spiral axial CT images are obtained through the abdomen and pelvis without the administration of oral contrast and with administration of intravenous contrast. Additional coronal and sagittal reformatted images are reconstructed. DOSIMETRY: Total DLP 760.79 mGycm; CTDI 18.62 mGy COMPARISON: None available. FINDINGS: CIRRHOTIC COMPLEX: Lobular hepatic surface contour consistent with hepatic cirrhosis in the appropriate clinical setting. Clinical correlation is advised. There is hepatomegaly (right lobe measures 23.7 cm CC); no focal hepatic lesion seen. There is severe splenomegaly (20.6 cm CC), in keeping with portal hypertension. There is an approximately 2.2 cm x 2.8 cm hypodense subcapsular lesion in the posterior spleen, presumed splenic cyst. Axial image 30; sagittal image 20. There are prominent splenic hilar varices, relatively small perigastric varices, in keeping with sequela of portal hypertension. There is a large intra-abdominal and intrapelvic ascites. Diffuse subcutaneous soft tissue edema, which may reflect anasarca; rule out third spacing secondary to hypoalbuminemia or hypervolemia. GASTROINTESTINAL TRACT: There is thickened appearance of the visualized distal esophagus, gastric wall, and duodenal sweep, which may reflect esophagitis, gastritis, and duodenitis in the appropriate clinical setting. There is circumferential thickening of collapsed large bowel loops (especially the hepatic flexure), nonspecific finding in the setting of cirrhosis and ascites, which may represent pancolitis in the appropriate clinical setting; rule out ulcerative colitis and pseudomembranous colitis. No evidence for bowel herniation, bowel obstruction, appendicitis or diverticulitis. GENITOURINARY SYSTEM: There are multiple small bilateral scattered renal cortical cysts; largest in the left lower pole kidney measuring 2.4 cm. There is suggestion of tiny bilateral nonobstructing renal calculi. The kidneys are unremarkable. There is no ureteral calculus or stigmata of obstructive uropathy. The urinary bladder is grossly unremarkable for a non-dedicated exam. CT ABDOMEN: Status post cholecystectomy. The liver, spleen, pancreas, adrenal glands, aorta, and inferior vena cava are within normal limits for a CT scan. There is no intra-abdominal or retroperitoneal lymphadenopathy, or free air seen. No abdominal herniation is noted. CT PELVIS: No pelvic sidewall or inguinal lymphadenopathy is seen. No inguinal herniation is noted. No free air is seen. BONES AND JOINTS: Status post L5/S1 fusion with metallic disc spacer prosthesis in situ. The visualized bony structures are otherwise within normal limits. LUNG BASES: The lung bases are clear. IMPRESSION: 1. Lobular hepatic surface contour consistent with hepatic cirrhosis in the appropriate clinical setting. Clinical correlation is advised. 2. Hepatomegaly (right lobe measures 23.7 cm CC); no focal hepatic lesion seen. 3. Severe splenomegaly (20.6 cm CC), in keeping with portal hypertension. 4. Approximately 2.2 cm x 2.8 cm hypodense subcapsular lesion in the posterior spleen, presumed splenic cyst. Axial image 30; sagittal image 20. 5. Prominent splenic hilar varices, relatively small perigastric varices, in keeping with sequela of portal hypertension. 6. Large intra-abdominal and intrapelvic ascites. 7. Diffuse subcutaneous soft tissue edema, which may reflect anasarca; rule out third spacing secondary to hypoalbuminemia or hypervolemia. 8. Thickened appearance of the visualized distal esophagus, gastric wall, and duodenal sweep, which may reflect esophagitis, gastritis, and duodenitis in the appropriate clinical setting. 9. Circumferential thickening of collapsed large bowel loops (especially the hepatic flexure), nonspecific finding in the setting of cirrhosis and ascites, which may represent pancolitis in the appropriate clinical setting; rule out ulcerative colitis and pseudomembranous colitis. 10. No evidence for bowel herniation, bowel obstruction, appendicitis or diverticulitis. 11. Multiple tiny bilateral nonobstructing renal calculi noted; no ureteral stones or obstructive uropathy seen bilaterally. 12. Status post L5/S1 fusion with metallic disc spacer prosthesis in situ. Electronically signed by: Nestor Nolasco (Feb 08, 2023 17:22:32) Opioid Opioid Risk Tool Age (Tristen box if 16-45): No History of Preadolescent Sexual Abuse: No Total: 0 Total Score Risk Category: Low Risk Copyright: Froilan MARINA predicting aberrant behaviors Discharge Plan Diagnosis Discharge Problem: Hematemesis Discharge Plan Patient Disposition: ADMITTED INPATIENT Condition: Stable Orders to Discharge Patient Discharge Orders: Transfer (Routine); Ordered 02/08/23 Ordered By: Ford Coats
[2023-02-08] MEDS ORDERED: NS 1,000 ML IV 1,000 ML IV ONE (13:41)
[2023-02-08] MEDS ORDERED: NS 1,000 ML IV 1,000 ML ONE (13:44)
[2023-02-08 13:55] LABS: BILIRUBIN,URINE 1+ (NEGATIVE); BLOOD/HEMOGLOBIN,URINE 2+ (NEGATIVE); GLUCOSE, URINE NEGATIVE (NEGATIVE); KETONES,URINE NEGATIVE (NEGATIVE); LEUKOCYTE ESTERASE ,URINE 1+ (NEGATIVE); NITRITES,URINE NEGATIVE (NEGATIVE); PROTEIN,URINE 2+ (NEGATIVE); UROBILINOGEN,URINE 2+ (NORMAL)
[2023-02-08 14:21] LABS: HEMOGLOBIN 8.3 g/dL (13.5-18.0); MEAN CORPUSCULAR HEMOGLOBIN 24.5 pg (27.0-34.0); MEAN PLATELET VOLUME 8.4 fL (7.4-11.0); MONOCYTES # (AUTO) 0.1 x10^3/uL (0.3-0.8)
[2023-02-08 14:25] LABS: INR 1.75 (0.8-1.3)
[2023-02-08 14:27] LABS: AMMONIA 47 umol/L (11-32)
[2023-02-08 14:32] LABS: ALANINE AMINOTRANSFERASE 15 Units/L (12-78); ALBUMIN 3.3 g/dL (3.4-5.0); ALKALINE PHOSPHATASE 171 Units/L (46-116); ASPARTATE AMINO TRANSFERASE 32 Units/L (15-37); BLOOD UREA NITROGEN 5 mg/dL (7-18); CALCIUM 7.7 mg/dL (8.5-10.1); CARBON DIOXIDE 27.1 mmol/L (21-32); CHLORIDE 109 mmol/L (98-107); COR CA(FOR HYPOALB) 8.3 mg/dL (8.5-10.1); COR NA(FOR HYPERGLY) 147 mmol/L (136-145); CREATININE 0.87 mg/dL (0.70-1.30); GLUCOSE 121 mg/dL (65-99); LIPASE 58 Units/L (73-393); SODIUM 146 mmol/L (136-145); TOTAL PROTEIN 5.6 g/dL (6.4-8.2); eGFR NON BLACK RACES > 60 (>60)
[2023-02-08] MEDS ORDERED: MORPHINE SULFATE INJ 4 MG IVP ONE (14:33)
[2023-02-08] MEDS ORDERED: ZOFRAN INJ 4 MG VIAL IVP ONE (14:33)
[2023-02-08] MEDS ORDERED: MORPHINE SULFATE INJ 4 MG ONE (14:33)
[2023-02-08 14:34] LABS: POTASSIUM 2.9 mmol/L (3.5-5.1)
[2023-02-08] MEDS ORDERED: ZOFRAN INJ 4 MG VIAL ONE (14:34)
[2023-02-08 14:36] LABS: BASOPHILS % (AUTO) 0.4 % (0.2-1.0); EOSINOPHILS % (AUTO) 0.8 % (0.9-2.9); HEMATOCRIT 25.7 % (42.0-54.0); LYMPHOCYTES # (AUTO) 0.3 X10^3/uL (1.3-2.9); MEAN CORPUSCULAR HGB CONC 32.3 g/dL (33.0-35.0); MEAN CORPUSCULAR VOLUME 75.7 fL (80.0-100.0); MONOCYTES % (AUTO) 5.5 % (0.0-13.0); NEUTROPHILS # (AUTO) 1.3 x10^3/uL (2.2-4.8); NEUTROPHILS % (AUTO) 75.3 % (42.0-75.0); PLATELET COUNT 91 X10^3/uL (150.0-450.0); RED CELL DISTRIBUTION WIDTH 19.9 % (11.6-16.5)
[2023-02-08 14:42] LABS: COLOR,URINE DARK YELLOW (YELLOW)
[2023-02-08 14:43] LABS: APPEARANCE,URINE CLEAR (CLEAR); BACTERIA,URINE TRACE /HPF (NEGATIVE); SQUAMOUS EPITHELIAL CELL,UR FEW /HPF (NEGATIVE)
[2023-02-08 14:45] LABS: WHITE BLOOD COUNT 1.7 X10^3/uL (3.6-10.0)
[2023-02-08] MEDS ORDERED: OMNIPAQUE 350 mg/mL 100 mL BTL 100 ML ONE (15:43)
--- NOTE | 2023-02-08 17:24 | CT ---
EXAM: CT ABDOMEN AND PELVIS WITH INTRAVENOUS CONTRASTHISTORY: Cirrhosis. Vomiting blood.TECHNIQUE: Spiral axial CT images are obtained through the abdomen and pelvis without the administration of oral contrast and with administration of intravenous contrast. Additional coronal and sagittal reformatted images are reconstructed.DOSIMETRY: Total DLP 760.79 mGycm; CTDI 18.62 mGyCOMPARISON: None available.FINDINGS:CIRRHOTIC COMPLEX: Lobular hepatic surface contour consistent with hepatic cirrhosis in the appropriate clinical setting. Clinical correlation is advised. There is hepatomegaly (right lobe measures 23.7 cm CC); no focal hepatic lesion seen. There is severe splenomegaly (20.6 cm CC), in keeping with portal hypertension. There is an approximately 2.2 cm x 2.8 cm hypodense subcapsular lesion in the posterior spleen, presumed splenic cyst. Axial image 30; sagittal image 20. There are prominent splenic hilar varices, relatively small perigastric varices, in keeping with sequela of portal hypertension. There is a large intra-abdominal and intrapelvic ascites. Diffuse subcutaneous soft tissue edema, which may reflect anasarca; rule out third spacing secondary to hypoalbuminemia or hypervolemia.GASTROINTESTINAL TRACT: There is thickened appearance of the visualized distal esophagus, gastric wall, and duodenal sweep, which may reflect esophagitis, gastritis, and duodenitis in the appropriate clinical setting. There is circumferential thickening of collapsed large bowel loops (especially the hepatic flexure), nonspecific finding in the setting of cirrhosis and ascites, which may represent pancolitis in the appropriate clinical setting; rule out ulcerative colitis and pseudomembranous colitis. No evidence for bowel herniation, bowel obstruction, appendicitis or diverticulitis.GENITOURINARY SYSTEM: There are multiple small bilateral scattered renal cortical cysts; largest in the left lower pole kidney measuring 2.4 cm. There is suggestion of tiny bilateral nonobstructing renal calculi. The kidneys are unremarkable. There is no ureteral calculus or stigmata of obstructive uropathy. The urinary bladder is grossly unremarkable for a non-dedicated exam.CT ABDOMEN: Status post cholecystectomy. The liver, spleen, pancreas, adrenal glands, aorta, and inferior vena cava are within normal limits for a CT scan. There is no intra-abdominal or retroperitoneal lymphadenopathy, or free air seen. No abdominal herniation is noted.CT PELVIS: No pelvic sidewall or inguinal lymphadenopathy is seen. No inguinal herniation is noted. No free air is seen.BONES AND JOINTS: Status post L5/S1 fusion with metallic disc spacer prosthesis in situ. The visualized bony structures are otherwise within normal limits.LUNG BASES: The lung bases are clear.IMPRESSION:1. Lobular hepatic surface contour consistent with hepatic cirrhosis in the appropriate clinical setting. Clinical correlation is advised.2. Hepatomegaly (right lobe measures 23.7 cm CC); no focal hepatic lesion seen.3. Severe splenomegaly (20.6 cm CC), in keeping with portal hypertension.4. Approximately 2.2 cm x 2.8 cm hypodense subcapsular lesion in the posterior spleen, presumed splenic cyst. Axial image 30; sagittal image 20.5. Prominent splenic hilar varices, relatively small perigastric varices, in keeping with sequela of portal hypertension.6. Large intra-abdominal and intrapelvic ascites.7. Diffuse subcutaneous soft tissue edema, which may reflect anasarca; rule out third spacing secondary to hypoalbuminemia or hypervolemia.8. Thickened appearance of the visualized distal esophagus, gastric wall, and duodenal sweep, which may reflect esophagitis, gastritis, and duodenitis in the appropriate clinical setting.9. Circumferential thickening of collapsed large bowel loops (especially the hepatic flexure), nonspecific finding in the setting of cirrhosis and ascites, which may represent pancolitis in the appropriate clinical setting; rule out ulcerative colitis and pseudomembranous colitis.10. No evidence for bowel herniation, bowel obstruction, appendicitis or diverticulitis.11. Multiple tiny bilateral nonobstructing renal calculi noted; no ureteral stones or obstructive uropathy seen bilaterally.12. Status post L5/S1 fusion with metallic disc spacer prosthesis in situ.Electronically signed by: Nestor Nolasco (Feb 08, 2023 17:22:32)
[2023-02-08] MEDS ORDERED: DILAUDID INJ IVP ONE (17:47)
[2023-02-08] MEDS ORDERED: DILAUDID INJ ONE (17:52)
[2023-02-08] MEDS ORDERED: K-DUR TAB 20 MEQ PO ONE ×2 (17:52→18:03)
[2023-02-08] MEDS ORDERED: PROTONIX INJ 40 MG VIAL IVP ONE (18:04)
[2023-02-08] MEDS ORDERED: PROTONIX INJ 40 MG VIAL ONE (18:05)
[2023-02-08] MEDS ORDERED: CONSULT PHARMACY - POTASSIUM & MAGNESIUM XX SCH (20:06)
[2023-02-08] MEDS ORDERED: K-DUR TAB 20 MEQ PO SCH (21:00)
[2023-02-08] MEDS: D5 NS + KCL 20 MEQ/L 1,000 ML IV SCH (23:09)
[2023-02-08] MEDS: DILAUDID INJ IVP PRN (23:16)
[2023-02-09] MEDS: DILAUDID INJ IVP PRN ×5 (05:09→21:57)
[2023-02-09] MEDS: D5 NS + KCL 20 MEQ/L 1,000 ML IV SCH (05:10)
[2023-02-09 05:48] LABS: AMMONIA 52 umol/L (11-32)
[2023-02-09 05:55] LABS: ALANINE AMINOTRANSFERASE 13 Units/L (12-78); ALKALINE PHOSPHATASE 159 Units/L (46-116); ASPARTATE AMINO TRANSFERASE 29 Units/L (15-37); BLOOD UREA NITROGEN 7 mg/dL (7-18); CALCIUM 7.7 mg/dL (8.5-10.1); CARBON DIOXIDE 27.7 mmol/L (21-32); CHLORIDE 109 mmol/L (98-107); COR CA(FOR HYPOALB) 8.5 mg/dL (8.5-10.1); CREATININE 0.77 mg/dL (0.70-1.30); GLUCOSE 100 mg/dL (65-99); POTASSIUM 3.4 mmol/L (3.5-5.1); SODIUM 143 mmol/L (136-145); TOTAL PROTEIN 5.3 g/dL (6.4-8.2); eGFR NON BLACK RACES > 60 (>60)
[2023-02-09 06:00] LABS: BASOPHILS % (AUTO) 0.4 % (0.2-1.0); EOSINOPHILS % (AUTO) 1.9 % (0.9-2.9); HEMATOCRIT 24.7 % (42.0-54.0); HEMOGLOBIN 7.9 g/dL (13.5-18.0); LYMPHOCYTES # (AUTO) 0.4 X10^3/uL (1.3-2.9); LYMPHOCYTES % (AUTO) 32.8 % (21.0-51.0); MEAN CORPUSCULAR HEMOGLOBIN 24.5 pg (27.0-34.0); MEAN CORPUSCULAR HGB CONC 32.2 g/dL (33.0-35.0); MEAN CORPUSCULAR VOLUME 76.2 fL (80.0-100.0); MEAN PLATELET VOLUME 7.9 fL (7.4-11.0); MONOCYTES # (AUTO) 0.1 x10^3/uL (0.3-0.8); MONOCYTES % (AUTO) 6.8 % (0.0-13.0); NEUTROPHILS # (AUTO) 0.8 x10^3/uL (2.2-4.8); NEUTROPHILS % (AUTO) 58.1 % (42.0-75.0); PLATELET COUNT 84 X10^3/uL (150.0-450.0); RED BLOOD COUNT 3.24 X10^6/uL (4.7-6.0); RED CELL DISTRIBUTION WIDTH 19.4 % (11.6-16.5)
[2023-02-09 06:17] LABS: WHITE BLOOD COUNT 1.3 X10^3/uL (3.6-10.0)
[2023-02-09] MEDS ORDERED: CONSULT PHARMACY - POTASSIUM & MAGNESIUM XX SCH (08:00)
[2023-02-09] MEDS: PROTONIX INJ 40 MG VIAL IVP SCH (08:46)
[2023-02-09] MEDS: D5 1/2 NS + KCL 20 MEQ/L 1,000 ML IV SCH ×2 (08:47→21:37)
[2023-02-09] MEDS ORDERED: MAGNESIUM SULFATE 1 GRAM/100 mL PREMIX IV NR (09:00)
[2023-02-09] MEDS ORDERED: ANCEF VIAL 1 GRAM IVP SCH (15:00)
--- NOTE | 2023-02-09 15:00 | DR.H&P ---
H&P - History & Physical for Day of: H&P Date: 02/08/23 - Chief Complaint Chief Complaint: WEAKNESS, VOMITING BLOOD, BLOOD IN URINE - History of Present Illness History of Present Illness: IS A 37 YEAR OLD PATIENT OF OURS. HE HAS A PMH OF ANEMIA, ANXIETY, DM II, GERD, HTN, CIRRHOSIS OF UNKNOWN CAUSE, KIDNEY STONES, CHOLECYSTECTOMY, ORTHO SURGERY, LITHOTRIPSY. HE PRESENTED TO THE EMERGENCY ROOM WITH COMPLAINTS OF GENERALIZED WEAKNESS, NAUSEA, AND VOMITING, LOW BACK PAIN, AND ABDOMINAL PAIN. PATIENT REPORTS THAT HE STARTED VOMITING BLOOD AND PASSING BLOOD IN HIS URINE THIS MORNING. PATIENT REPORTS THAT HE IS SCHEDULED FOR A LIVER BIOPSY NEXT WEEK. ON ARRIVAL TO THE HOSPITAL, HIS VITALS WERE: 99.1-95-16-98%-135/75. LABS WERE OBTAINED. WBC 1.7, RBC 3.40, HGB 8.3, HCT 25.7, PLT COUNT 91, INR 1.75, PTT 43.0, SODIUM 146, POTASSIUM 2.9, CHLORIDE 109, CARBON DIOXIDE 27.1, BUN 5, CREATININE 0.87, GLUCOSE 121, CALCIUM 7.7, MAGNESIUM 1.7, TOTAL PROTEIN 2.10, AST 32, ALT 15, ALK PHOS 171, AMMONIA 47, TROPONIN 10.0, TOTAL PROTEIN 5.6, ALBUMIN 3.3, LIPASE 58. URINALYSIS WAS OBTAINED AND REVEALED: WBC 0-2, RBC 10-20, BACTERIA TRACE, LEUKOCYTES 1+. AN ABDOMEN/PELVIS CT WITH CONTRAST WAS OBTAINED AND REVEALED: 1. Lobular hepatic surface contour consistent with hepatic cirrhosis in the appropriate clinical setting. Clinical correlation is advised. 2. Hepatomegaly (right lobe measures 23.7 cm CC); no focal hepatic lesion seen. 3. Severe splenomegaly (20.6 cm CC), in keeping with portal hypertension. 4. Approximately 2.2 cm x 2.8 cm hypodense subcapsular lesion in the posterior spleen, presumed splenic cyst. 5. Prominent splenic hilar varices, relatively small perigastric varices, in keeping with sequela of portal hypertension. 6. Large intra-abdominal and intrapelvic ascites. 7. Diffuse subcutaneous soft tissue edema, which may reflect anasarca; rule out third spacing secondary to hypoalbuminemia or hypervolemia. 8. Thickened appearance of the visualized distal esophagus, gastric wall, and duodenal sweep, which may reflect esophagitis, gastritis, and duodenitis in the appropriate clinical setting. 9. Circumferential thickening of collapsed large bowel loops (especially the hepatic flexure), nonspecific finding in the setting of cirrhosis and ascites, which may represent pancolitis in the appropriate clinical setting; rule out ulcerative colitis and pseudomembranous colitis. 10. No evidence for bowel herniation, bowel obstruction, appendicitis or diverticulitis. 11. Multiple tiny bilateral nonobstructing renal calculi noted; no ureteral stones or obstructive uropathy seen bilaterally. 12. Status post L5/S1 fusion with metallic disc spacer prosthesis in situ. IN THE ER, HE WAS GIVEN A NORMAL SALINE BOLUS, MORPHINE 4MG IV X 1 DOSE, ZOFRAN 4MG IV X 1 DOSE, K-DUR 40MEQ PO X 1, PROTONIX 40MG IV X 1. HE WAS ADMITTED TO THE HOSPITAL FOR FURTHER EVALUATION AND TREATMENT OF HEMATEMESIS, HEMATURIA, CIRRHOSIS, ASCITES, PANCYTOPENIA, ANASARCA, HYPOALBUMINEMIA, COLITIS. WE WILL CONSULT , GENERAL SURGEON, FOR POSSIBLE EGD. HE WAS STARTED ON D5 NS WITH 20MEQ KCL AT 100 ML/HR, CEFAZOLIN 1G IV Q8H, PROTONIX 40MG IV DAILY, ZOFRAN 4MG IV Q6H, DILAUDID 1MG IV Q4H, OTBS ACHS. WE WILL RESUME HIS HOME MEDICATIONS OF FOLIC ACID, LOPID, HYDROXYZINE, LOSARTAN-HCTZ, FLONASE, TAMSULOSIN, GABAPENTIN, DULOXETINE, ZYRTEC, DICYCLOMINE, AND PERCOCET. OTHERWISE, WE LUÍS FOLLOW UP WITH AM LABS AND CONTINUE TO MONITOR. TIME SPENT ON CLINICAL ASSESSMENT, REVIEWING LABS AND IMAGING, DECISION MAKING, AND DOCUMENTATION GREATER THAN 75 MINUTES. - Past Medical History Past Medical History: Hypertension, Diabetes, Anxiety, Anemia, GERD, Kidney Stones Additional Medical History: Hx of Degenerative Disc Disease, Hormone Disorder - Past Surgical History Surgical History: Cholecystectomy Additional Surgical History: Hx of Lumbar Disc Replacement(2014), Pilonidal Cyst Removal(2000), Fistula Removal(2000) - Family History Family Medical History: Diabetes Mellitus, Hypertension - Social History Does patient currently use any type of tobacco product: Yes Have you used tobacco products in the last 12 months: Yes Type of Tobacco Use: Cigarettes Does any household member use tobacco: No Alcohol Use: None Drug Use: None - Review of Systems Constitutional: Weakness Eyes: No Symptoms Reported ENT: No Symptoms Reported Respiratory: No Symptoms Reported Cardiovascular: No Symptoms Reported Gastrointestinal: See HPI, Nausea, Vomiting, Abdominal Pain Genitourinary: Hematuria Musculoskeletal: Back Pain Skin: No Symptoms Reported Neurological: Weakness - Physical Exam Vital Signs: Vital Signs Temperature 98 F Temperature 97.5 F Pulse Rate [Left] 83 Pulse Rate [Left] 56 Respiratory Rate 20 Respiratory Rate 20 Respiratory Rate 18 Respiratory Rate 20 Blood Pressure [Left Arm] 136/83 Blood Pressure [Left Arm] 133/71 O2 Sat by Pulse Oximetry 92 O2 Sat by Pulse Oximetry 97 Oriented: Normal Eyes: Normal Ear: Normal Nose: Normal Throat: Normal Respiratory: Diminished Throughout Cardiovascular: Normal : Normal Auscultation: Bowel Sounds: Normal Palpation: Normal Tenderness: Diffuse, Mild Skin: Decreased Turgur Musculoskeletal: Back:Lumbar, Tender Psychiatric: Normal Mood Description: Calm Affect: Normal Speech Pattern: Clear - Assessment/Plan (1) Abdominal pain Qualifiers: Abdominal location: generalized Qualified Code(s): R10.84 - Generalized abdominal pain Status: Acute Plan: ADMIT, D5 NS WITH 20MEQ KCL AT 100 ML/HR, CEFAZOLIN 1G IV Q8H, PROTONIX 40MG IV DAILY, ZOFRAN 4MG IV Q6H, DILAUDID 1MG IV Q4H, OTBS ACHS. WE WILL RESUME HIS HOME MEDICATIONS OF FOLIC ACID, LOPID, HYDROXYZINE, LOSARTAN-HCTZ, FLONASE, TAMSULOSIN, GABAPENTIN, DULOXETINE, ZYRTEC, DICYCLOMINE, AND PERCOCET. MONITOR LABS (2) Anemia Qualifiers: Anemia type: iron deficiency Iron deficiency anemia type: chronic blood loss Qualified Code(s): D50.0 - Iron deficiency anemia secondary to blood loss (chronic) Status: Acute Plan: MONITOR H&H (3) Cirrhosis Qualifiers: Hepatic cirrhosis type: unspecified hepatic cirrhosis Ascites presence: with ascites Qualified Code(s): K74.60 - Unspecified cirrhosis of liver; R18.8 - Other ascites Status: Acute (4) Hematuria Qualifiers: Hematuria type: unspecified type Qualified Code(s): R31.9 - Hematuria, unspecified Status: Acute (5) Hematemesis Qualifiers: Nausea presence: with nausea Qualified Code(s): K92.0 - Hematemesis Status: Acute (6) Colitis Status: Acute (7) Anasarca Status: Acute (8) Splenomegaly Status: Acute (9) Pancytopenia Status: Acute (10) DM hyperosmolarity type II Qualifiers: Diabetes mellitus fpc insulin use: with tank terminal gauger use Diabetes mellitus complication detail: without coma Qualified Code(s): E11.00 - Type 2 diabetes mellitus with hyperosmolarity without nonketotic hyperglycemic- hyperosmolar coma (NKHHC); Z79.4 - alf (current) use of insulin Status: Chronic (11) HTN (hypertension) Qualifiers: Hypertension type: primary hypertension Qualified Code(s): I10 - Essential (primary) hypertension Status: Chronic (12) Allergic rhinitis Qualifiers: Allergic rhinitis trigger: unspecified Allergic rhinitis seasonality: unspecified Qualified Code(s): J30.9 - Allergic rhinitis, unspecified Status: Chronic - Allergies Allergies/Adverse Reactions: Allergies Allergy/AdvReac Type Severity Reaction Status Date / Time No Known Drug Allergies Allergy Verified 12/07/22 17:37 - Medications Home Medications: Home Medications Medication Instructions Recorded Confirmed cetirizine 10 mg tablet (Zyrtec) 10 mg PO QPM 10/09/22 02/08/23 cyanocobalamin (B12)-cobamamide 1 theo sublingual USEASDIRECTD 10/09/22 02/08/23 5,000 mcg-100 mcg sublingual lozenge (B12) cyclobenzaprine 10 mg tablet 10 mg PO TID PRN MUSCLE RELAXER 10/09/22 02/08/23 duloxetine 60 mg capsule,delayed 60 mg PO QDAY 10/09/22 02/08/23 release folic acid 1 mg tablet 1 mg PO QDAY 10/09/22 02/08/23 gemfibrozil 600 mg tablet (Lopid) 600 mg PO BID 10/09/22 02/08/23 hydrochlorothiazide 12.5 mg capsule 12.5 mg PO QDAY 10/09/22 02/08/23 lansoprazole 30 mg capsule,delayed 30 mg PO QDAY 10/09/22 02/08/23 release losartan 50 mg-hydrochlorothiazide 1 tab PO QDAY 10/09/22 02/08/23 12.5 mg tablet metformin 500 mg tablet 500 mg PO BID PRN 10/09/22 02/08/23 ondansetron HCl 8 mg tablet 8 mg PO Q8H PRN 10/09/22 02/08/23 tamsulosin 0.4 mg capsule 0.4 mg PO QPM 10/09/22 02/08/23 dicyclomine 10 mg capsule 10 mg PO BID 02/08/23 02/08/23 fluticasone propionate 50 1 spray intranasal BID PRN 02/08/23 02/08/23 mcg/actuation nasal spray,suspension gabapentin 600 mg tablet 600 mg PO TID 02/08/23 02/08/23 oxycodone-acetaminophen 10 mg-325 1 tab PO QID PRN 02/08/23 02/08/23 mg tablet Previous Rx's Medication Instructions Recorded hydroxyzine HCl 25 mg tablet 25 mg PO TID PRN itching #14 tabs 12/15/22
[2023-02-09] MEDS ORDERED: NICOTINE PATCH TD ONE (16:48)
[2023-02-09] MEDS: NICOTINE PATCH TD SCH (17:07)
[2023-02-09] MEDS: ANCEF VIAL 1 GRAM 1 G in NS 100 ML IV 100 ML IV SCH (21:36)
[2023-02-10] MEDS: DILAUDID INJ IVP PRN ×5 (02:51→21:26)
[2023-02-10] MEDS: COLACE CAP 100 MG PO PRN ×2 (06:00→21:25)
[2023-02-10] MEDS: MILK OF MAGNESIA PO PRN ×2 (06:00→21:25)
[2023-02-10] MEDS: ANCEF VIAL 1 GRAM 1 G in NS 100 ML IV 100 ML IV SCH ×3 (06:00→21:26)
[2023-02-10 07:05] LABS: AMMONIA 80 umol/L (11-32)
[2023-02-10 07:06] LABS: EOSINOPHILS % (AUTO) 1.1 % (0.9-2.9); HEMATOCRIT 24.8 % (42.0-54.0); LYMPHOCYTES # (AUTO) 0.3 X10^3/uL (1.3-2.9); LYMPHOCYTES % (AUTO) 18.4 % (21.0-51.0); MONOCYTES # (AUTO) 0.1 x10^3/uL (0.3-0.8); NEUTROPHILS # (AUTO) 1.2 x10^3/uL (2.2-4.8)
[2023-02-10 07:09] LABS: BASOPHILS % (AUTO) 0.6 % (0.2-1.0); MEAN CORPUSCULAR HEMOGLOBIN 24.3 pg (27.0-34.0); MEAN CORPUSCULAR HGB CONC 32.4 g/dL (33.0-35.0); MEAN PLATELET VOLUME 8.4 fL (7.4-11.0); MONOCYTES % (AUTO) 7.3 % (0.0-13.0); NEUTROPHILS % (AUTO) 72.6 % (42.0-75.0); PLATELET COUNT 83 X10^3/uL (150.0-450.0); RED BLOOD COUNT 3.31 X10^6/uL (4.7-6.0); RED CELL DISTRIBUTION WIDTH 19.9 % (11.6-16.5)
[2023-02-10 07:14] LABS: ALANINE AMINOTRANSFERASE 14 Units/L (12-78); ALKALINE PHOSPHATASE 160 Units/L (46-116); ASPARTATE AMINO TRANSFERASE 28 Units/L (15-37); BLOOD UREA NITROGEN 8 mg/dL (7-18); CALCIUM 7.5 mg/dL (8.5-10.1); CARBON DIOXIDE 25.5 mmol/L (21-32); CHLORIDE 108 mmol/L (98-107); COR CA(FOR HYPOALB) 8.3 mg/dL (8.5-10.1); CREATININE 0.87 mg/dL (0.70-1.30); GLUCOSE 98 mg/dL (65-99); POTASSIUM 3.2 mmol/L (3.5-5.1); SODIUM 142 mmol/L (136-145); TOTAL PROTEIN 5.4 g/dL (6.4-8.2); eGFR NON BLACK RACES > 60 (>60)
[2023-02-10 07:15] LABS: WHITE BLOOD COUNT 1.7 X10^3/uL (3.6-10.0)
[2023-02-10] MEDS ORDERED: CONSULT PHARMACY - POTASSIUM & MAGNESIUM XX SCH (08:00)
[2023-02-10] MEDS: ZOFRAN INJ 4 MG VIAL IVP PRN (08:10)
[2023-02-10] MEDS: ALBUMIN HUMAN 25%- 100 ML 100 ML IV SCH (08:10)
[2023-02-10] MEDS: NICOTINE PATCH TD SCH (08:11)
[2023-02-10] MEDS: PROTONIX INJ 40 MG VIAL IVP SCH (08:11)
[2023-02-10] MEDS: K-DUR TAB 20 MEQ PO SCH ×2 (08:15→11:05)
[2023-02-10] MEDS: MIRALAX POWDER (1 DOSE 17 G) PO SCH (11:05)
[2023-02-10] MEDS: BENTYL CAP 10 MG PO SCH ×4 (11:05→21:26)
[2023-02-10] MEDS: D5 1/2 NS + KCL 20 MEQ/L 1,000 ML IV SCH ×3 (12:19→23:44)
[2023-02-11] MEDS: DILAUDID INJ IVP PRN ×5 (02:49→21:14)
[2023-02-11] MEDS: ANCEF VIAL 1 GRAM 1 G in NS 100 ML IV 100 ML IV SCH ×3 (05:48→21:11)
[2023-02-11 06:29] LABS: BASOPHILS % (AUTO) 0.4 % (0.2-1.0); EOSINOPHILS % (AUTO) 1.7 % (0.9-2.9); HEMATOCRIT 24.3 % (42.0-54.0); HEMOGLOBIN 7.9 g/dL (13.5-18.0); LYMPHOCYTES # (AUTO) 0.3 X10^3/uL (1.3-2.9); LYMPHOCYTES % (AUTO) 23.6 % (21.0-51.0); MEAN CORPUSCULAR HEMOGLOBIN 24.4 pg (27.0-34.0); MEAN CORPUSCULAR HGB CONC 32.6 g/dL (33.0-35.0); MEAN PLATELET VOLUME 8.6 fL (7.4-11.0); MONOCYTES # (AUTO) 0.1 x10^3/uL (0.3-0.8); MONOCYTES % (AUTO) 8.8 % (0.0-13.0); NEUTROPHILS # (AUTO) 0.9 x10^3/uL (2.2-4.8); NEUTROPHILS % (AUTO) 65.5 % (42.0-75.0); PLATELET COUNT 70 X10^3/uL (150.0-450.0); RED BLOOD COUNT 3.25 X10^6/uL (4.7-6.0); RED CELL DISTRIBUTION WIDTH 19.7 % (11.6-16.5)
[2023-02-11 06:34] LABS: WHITE BLOOD COUNT 1.4 X10^3/uL (3.6-10.0)
[2023-02-11 06:38] LABS: AMMONIA 84 umol/L (11-32)
[2023-02-11 06:49] LABS: ALANINE AMINOTRANSFERASE 16 Units/L (12-78); ALBUMIN 3.1 g/dL (3.4-5.0); ALKALINE PHOSPHATASE 153 Units/L (46-116); ASPARTATE AMINO TRANSFERASE 32 Units/L (15-37); BLOOD UREA NITROGEN 6 mg/dL (7-18); CALCIUM 7.4 mg/dL (8.5-10.1); CARBON DIOXIDE 24.7 mmol/L (21-32); CHLORIDE 109 mmol/L (98-107); COR CA(FOR HYPOALB) 8.1 mg/dL (8.5-10.1); CREATININE 0.68 mg/dL (0.70-1.30); GLUCOSE 93 mg/dL (65-99); POTASSIUM 3.3 mmol/L (3.5-5.1); SODIUM 142 mmol/L (136-145); TOTAL PROTEIN 5.3 g/dL (6.4-8.2); eGFR NON BLACK RACES > 60 (>60)
[2023-02-11] MEDS ORDERED: CONSULT PHARMACY - POTASSIUM & MAGNESIUM XX SCH (08:00)
[2023-02-11] MEDS: NICOTINE PATCH TD SCH (09:51)
[2023-02-11] MEDS: PROTONIX INJ 40 MG VIAL IVP SCH (09:52)
[2023-02-11] MEDS: BENTYL CAP 10 MG PO SCH ×4 (09:52→21:12)
[2023-02-11] MEDS: ALBUMIN HUMAN 25%- 100 ML 100 ML IV SCH (09:53)
[2023-02-11] MEDS: MIRALAX POWDER (1 DOSE 17 G) PO SCH (10:03)
[2023-02-11] MEDS: HYZAAR 50/12.5 MG PO SCH (10:11)
[2023-02-11] MEDS: CHRONULAC PO SCH ×3 (10:11→21:12)
[2023-02-11] MEDS: K-DUR TAB 20 MEQ PO SCH ×2 (10:12→11:12)
[2023-02-11 10:25] LABS: BILIRUBIN,URINE NEGATIVE (NEGATIVE); BLOOD/HEMOGLOBIN,URINE 1+ (NEGATIVE); GLUCOSE, URINE NEGATIVE (NEGATIVE); KETONES,URINE NEGATIVE (NEGATIVE); LEUKOCYTE ESTERASE ,URINE NEGATIVE (NEGATIVE); NITRITES,URINE NEGATIVE (NEGATIVE); PROTEIN,URINE NEGATIVE (NEGATIVE); UROBILINOGEN,URINE NORMAL (NORMAL)
[2023-02-11 10:35] LABS: APPEARANCE,URINE CLEAR (CLEAR); COLOR,URINE PALE YELLOW (YELLOW)
[2023-02-11 10:36] LABS: BACTERIA,URINE TRACE /HPF (NEGATIVE); RBC,URINE 0-2 /HPF (0-3); SQUAMOUS EPITHELIAL CELL,UR RARE /HPF (NEGATIVE)
[2023-02-11] MEDS ORDERED: FLEXERIL TAB 10 MG PO PRN (10:53)
[2023-02-11] MEDS ORDERED: FLONASE NASAL SPRAY ENOSTRIL PRN (10:54)
[2023-02-11] MEDS: CYMBALTA PO SCH (11:12)
[2023-02-11] MEDS: FOLIC ACID TAB 1 MG PO SCH (11:12)
[2023-02-11] MEDS: D5 1/2 NS + KCL 20 MEQ/L 1,000 ML IV SCH ×3 (11:16→21:25)
[2023-02-11] MEDS: NEURONTIN TAB 600 MG PO SCH ×2 (14:43→21:13)
[2023-02-11] MEDS: LOPID PO SCH (17:30)
[2023-02-11] MEDS: ZOFRAN INJ 4 MG VIAL IVP PRN (17:43)
[2023-02-11] MEDS: ZyrTEC TAB 10 MG PO SCH (21:13)
[2023-02-11] MEDS: FLOMAX PO SCH (21:13)
[2023-02-12] MEDS: DILAUDID INJ IVP PRN ×3 (02:03→19:47)
[2023-02-12 06:13] LABS: AMMONIA 64 umol/L (11-32)
[2023-02-12 06:18] LABS: HEMOGLOBIN 8.2 g/dL (13.5-18.0); LYMPHOCYTES # (AUTO) 0.5 X10^3/uL (1.3-2.9); MEAN PLATELET VOLUME 8.4 fL (7.4-11.0); MONOCYTES # (AUTO) 0.2 x10^3/uL (0.3-0.8); NEUTROPHILS # (AUTO) 1.3 x10^3/uL (2.2-4.8); WHITE BLOOD COUNT 2.1 X10^3/uL (3.6-10.0)
[2023-02-12 06:26] LABS: ALANINE AMINOTRANSFERASE 6 Units/L (12-78); ALBUMIN 3.4 g/dL (3.4-5.0); ALKALINE PHOSPHATASE 153 Units/L (46-116); ASPARTATE AMINO TRANSFERASE 24 Units/L (15-37); BLOOD UREA NITROGEN 3 mg/dL (7-18); CALCIUM 7.9 mg/dL (8.5-10.1); CARBON DIOXIDE 24.2 mmol/L (21-32); CHLORIDE 107 mmol/L (98-107); CREATININE 0.61 mg/dL (0.70-1.30); GLUCOSE 94 mg/dL (65-99); MAGNESIUM 1.9 mg/dL (2.0-2.9); POTASSIUM 3.4 mmol/L (3.5-5.1); SODIUM 140 mmol/L (136-145); TOTAL PROTEIN 5.7 g/dL (6.4-8.2); eGFR NON BLACK RACES > 60 (>60)
[2023-02-12 06:31] LABS: BASOPHILS % (AUTO) 0.5 % (0.2-1.0); EOSINOPHILS % (AUTO) 1.6 % (0.9-2.9); HEMATOCRIT 25.6 % (42.0-54.0); LYMPHOCYTES % (AUTO) 23.6 % (21.0-51.0); MEAN CORPUSCULAR HEMOGLOBIN 24.1 pg (27.0-34.0); MEAN CORPUSCULAR HGB CONC 32.2 g/dL (33.0-35.0); MEAN CORPUSCULAR VOLUME 74.8 fL (80.0-100.0); MONOCYTES % (AUTO) 10.1 % (0.0-13.0); NEUTROPHILS % (AUTO) 64.2 % (42.0-75.0); PLATELET COUNT 69 X10^3/uL (150.0-450.0); RED BLOOD COUNT 3.42 X10^6/uL (4.7-6.0); RED CELL DISTRIBUTION WIDTH 19.4 % (11.6-16.5)
[2023-02-12] MEDS: ANCEF VIAL 1 GRAM 1 G in NS 100 ML IV 100 ML IV SCH ×3 (06:39→21:18)
[2023-02-12] MEDS: NEURONTIN TAB 600 MG PO SCH ×3 (06:39→21:01)
[2023-02-12] MEDS: LOPID PO SCH ×2 (06:39→15:00)
[2023-02-12] MEDS: CHRONULAC PO SCH ×3 (06:40→21:00)
[2023-02-12] MEDS ORDERED: CONSULT PHARMACY - POTASSIUM & MAGNESIUM XX SCH (07:00)
[2023-02-12 07:22] LABS: ANISOCYTOSIS SLIGHT; PLATELET MORPHOLOGY COMMENT NORMAL (NORMAL)
[2023-02-12 07:23] LABS: MICROCYTOSIS SLIGHT
[2023-02-12 07:24] LABS: HYPOCHROMASIA SLIGHT
[2023-02-12] MEDS: D5 1/2 NS + KCL 20 MEQ/L 1,000 ML IV SCH ×2 (08:10→16:34)
[2023-02-12] MEDS: CYMBALTA PO SCH (08:10)
[2023-02-12] MEDS: BENTYL CAP 10 MG PO SCH ×4 (08:10→20:56)
[2023-02-12] MEDS: MIRALAX POWDER (1 DOSE 17 G) PO SCH (08:11)
[2023-02-12] MEDS: HYZAAR 50/12.5 MG PO SCH (08:18)
[2023-02-12] MEDS: PERCOCET TAB 5/325 MG PO PRN ×2 (08:20→16:34)
[2023-02-12] MEDS ORDERED: K-DUR TAB 20 MEQ PO SCH (09:00)
[2023-02-12] MEDS ORDERED: MAG-OX TAB PO SCH (09:00)
[2023-02-12] MEDS ORDERED: PREVACID PO SCH (09:00)
--- NOTE | 2023-02-12 11:08 | PCM.PROG ---
Progress Note - Progress Note for Day of Date of Exam: 02/10/23 - Subjective Subjective: IS CURRENTLY INPATIENT STATUS FOR TREATMENT OF ABDOMINAL PAIN, ANEMIA, CIRRHOSIS WITH PORTAL HTN, UPPER GI BLEED, COLITIS, ANASARCA, HYPERAMMONEMIA, SPLENOMEGALY, AND PANCYTOPENIA. HE HAS A PMH OF ANEMIA, ANXIETY, DM II, GERD, HTN, CIRRHOSIS OF UNKNOWN CAUSE, KIDNEY STONES, CHOLECYSTECTOMY, ORTHO SURGERY, LITHOTRIPSY. PATIENT REPORTS THAT HE IS SCHEDULED FOR POSSIBLE LIVER BIOPSY SOON. TODAY, HE IS ALERT AND ORIENTED, LYING IN BED ON MORNING ROUNDS. HE DENIES VOMITING ANY SINCE ADMISSION. HE CONTINUES TO COMPLAIN OF DIFFUSE ABDOMINAL PAIN, LOW BACK PAIN, AND GENERALIZED WEAKNESS. HE REPORTS THAT HIS URINE DOES STILL APPEAR TO HAVE BLOOD IN IT. HE DENIES HAVING A BOWEL MOVE MENT IN SEVERAL DAYS. ON EXAMINATION, HEART IS REGULAR IN RATE AND RHYTHM. BILATERAL LUNGS ARE CLEAR TO AUSCULTATION. ABDOMEN IS ROUND, SOFT, AND NOTED WITH DIFFUSE TENDERNESS. NORMAL BOWEL SOUNDS ARE NOTED IN ALL QUADRANTS. GOOD MOVEMENT NOTED TO UPPER AND LOWER EXTREMITIES WITH NO EDEMA NOTED. HIS VITALS THIS MORNING ARE: 98.8-64-20-96%-126/73. LABS WERE OBTAINED. WBC 1.7, RBC 3.31, HGB 8.0, HCT 24.8, PLT COUNT 83, SODIUM 142, POTASSIUM 3.2, CHLORIDE 108, BUN 8, CREATININE 0.87, GLUCOSE 98, CALCIUM 7.5, TOTAL BILI 1.40, AST 28, ALT 14, ALK PHOS 160, AMMONIA 80, TOTAL PROTEIN 5.4, ALBUMIN 3.0. WE CONSULTED , GENERAL SURGEON. HE PLANS TO OBSERVE PATIENT OVER THE WEEKEND AND PROCEED WITH UPPER ENDOSCOPY ON SUNDAY. WE ARE IN AGREEMENT WITH PLANS. HE IS CURRENTLY RECEIVING D5 NS WITH 20MEQ KCL AT 100 ML/HR, ALBUMIN 25% IV DAILY, CEFAZOLIN 1G IV Q8H, PROTONIX 40MG IV DAILY, ZOFRAN 4MG IV Q6H, DILAUDID 1MG IV Q4H, OTBS ACHS. WE WILL RESUME HIS HOME MEDICATIONS OF FOLIC ACID, LOPID, HYDROXYZINE, LOSARTAN-HCTZ, FLONASE, TAMSULOSIN, GABAPENTIN, DULOXETINE, ZYRTEC, DICYCLOMINE, AND PERCOCET. TODAY, WILL ADD COLACE 200MG Q12H PRN, MIRALAX 17G PO DAILY, AND MILK OF MAGNESIA. OTHERWISE, WE WILL FOLLOW UP WITH AM LABS AND CONTINUE TO MONITOR. TIME SPENT ON CLINICAL ASSESSMENT, REVIEWING LABS AND IMAGING, DECISION MAKING, AND DOCUMENTATION GREATER THAN 45 MINUTES. - Past Medical Family Social History Past Med/Fam/Surg Hx: No changes since H&P Allergies: Allergies No Known Drug Allergies Allergy (Verified 12/07/22 17:37) - Review of Systems ROS: No change since H&P - Vital Signs and I&O's Vital Signs: Vital Signs Temperature 98.2 F Temperature 98.6 F Pulse Rate [Left] 92 Pulse Rate [Left] 92 Respiratory Rate 20 Respiratory Rate 20 Respiratory Rate 20 Blood Pressure [Left Arm] 162/88 Blood Pressure [Left Arm] 160/88 O2 Sat by Pulse Oximetry 95 O2 Sat by Pulse Oximetry 95 Intake and Output: Intake & Output 02/09/23 02/10/23 02/11/23 02/12/23 11:59 11:59 11:59 11:59 Intake Total 1512 / 1512 1100 / 1100 4630 / 4630 2119 Balance 1512 / 1512 1100 / 1100 4630 / 4630 2119 - Physical Exam Oriented: Normal Eyes: Normal Ear: Normal Nose: Normal Throat: Normal Respiratory: Normal Cardiovascular: Normal : Normal Auscultation: Bowel Sounds: Normal Palpation: Normal Tenderness: Diffuse, Mild Skin: Decreased Turgur Musculoskeletal: Back:Lumbar, Tender Psychiatric: Normal Mood Description: Calm Affect: Normal Speech Pattern: Clear, Appropriate - Laboratory and Diagnostics Result Diagrams: 02/12/23 05:30 02/12/23 05:30 Labs: Laboratory WBC 2.1 X10^3/uL (3.6-10.0) L 02/12/23 05:30 RBC 3.42 X10^6/uL (4.7-6.0) L 02/12/23 05:30 Hgb 8.2 g/dL (13.5-18.0) L 02/12/23 05:30 Hct 25.6 % (42.0-54.0) L 02/12/23 05:30 MCV 74.8 fL (80.0-100.0) L 02/12/23 05:30 MCH 24.1 pg (27.0-34.0) L 02/12/23 05:30 MCHC 32.2 g/dL (33.0-35.0) L 02/12/23 05:30 RDW 19.4 % (11.6-16.5) H 02/12/23 05:30 Plt Count 69 X10^3/uL (150.0-450.0) L 02/12/23 05:30 Plt Count Comment Decreased (ADEQUATE) 02/12/23 05:30 MPV 8.4 fL (7.4-11.0) 02/12/23 05:30 Neut % (Auto) 64.2 % (42.0-75.0) 02/12/23 05:30 Lymph % (Auto) 23.6 % (21.0-51.0) 02/12/23 05:30 Hartley % (Auto) 10.1 % (0.0-13.0) 02/12/23 05:30 Eos % (Auto) 1.6 % (0.9-2.9) 02/12/23 05:30 Baso % (Auto) 0.5 % (0.2-1.0) 02/12/23 05:30 Neut # (Auto) 1.3 x10^3/uL (2.2-4.8) L 02/12/23 05:30 Lymph # (Auto) 0.5 X10^3/uL (1.3-2.9) L 02/12/23 05:30 [place]ley # (Auto) 0.2 x10^3/uL (0.3-0.8) L 02/12/23 05:30 Eos # (Auto) 0.0 x10^3/uL (0.0-0.2) 02/12/23 05:30 Baso # (Auto) 0.0 X10^3/uL (0.0-0.1) 02/12/23 05:30 Absolute Nucleated RBC 0.1 /100WBC 02/12/23 05:30 Total Counted 20 02/12/23 05:30 Neutrophils % (Manual) 75 % (39-76) 02/12/23 05:30 Lymphocytes % (Manual) 15 % (13-43) 02/12/23 05:30 Monocytes % (Manual) 10 % (4-9) H 02/12/23 05:30 Plt Morphology Comment Normal (NORMAL) 02/12/23 05:30 RBC Morphology Abnormal (NORMAL) 02/12/23 05:30 Hypochromasia Slight A 02/12/23 05:30 Anisocytosis Slight A 02/12/23 05:30 Microcytosis Slight A 02/12/23 05:30 PT 20.1 SECONDS (11.8-14.3) 02/08/23 14:02 INR Target Range - 02/08/23 14:02 INR 1.75 (0.8-1.3) H 02/08/23 14:02 APTT 43.0 SECONDS (22.9-36.5) H 02/08/23 14:02 PTT Comment - 02/08/23 14:02 Sodium 140 mmol/L (136-145) 02/12/23 05:30 Corrected Sodium TNP 02/12/23 05:30 Potassium 3.4 mmol/L (3.5-5.1) L 02/12/23 05:30 Chloride 107 mmol/L (98-107) 02/12/23 05:30 Carbon Dioxide 24.2 mmol/L (21-32) 02/12/23 05:30 BUN 3 mg/dL (7-18) L 02/12/23 05:30 Creatinine 0.61 mg/dL (0.70-1.30) L 02/12/23 05:30 Est GFR (MDRD) Af Amer > 60 (>60) 02/12/23 05:30 Est GFR (MDRD) Non-Af > 60 (>60) 02/12/23 05:30 Glucose 94 mg/dL (65-99) 02/12/23 05:30 POC Glucose (mg/dL) 105 mg/dL (65-99) H 02/12/23 05:33 Calcium 7.9 mg/dL (8.5-10.1) L 02/12/23 05:30 Corrected Calcium TNP 02/12/23 05:30 Magnesium 1.9 mg/dL (2.0-2.9) L 02/12/23 05:30 Total Bilirubin 1.70 mg/dL (0.2-1.0) H 02/12/23 05:30 AST 24 Units/L (15-37) 02/12/23 05:30 ALT 6 Units/L (12-78) L 02/12/23 05:30 Alkaline Phosphatase 153 Units/L (46-116) H 02/12/23 05:30 Ammonia 64 umol/L (11-32) H 02/12/23 05:30 Troponin I High Sens 10.0 ng/L (4.0-60.0) 02/08/23 14:02 Total Protein 5.7 g/dL (6.4-8.2) L 02/12/23 05:30 Albumin 3.4 g/dL (3.4-5.0) 02/12/23 05:30 Globulin 2.3 g/dL (2.5-4.5) L 02/12/23 05:30 Albumin/Globulin Ratio 1.5 Ratio (1.1-2.1) 02/12/23 05:30 Lipase 58 Units/L (73-393) L 02/08/23 14:02 Specimen Type Clean catch urine 02/11/23 10:00 Urine Color Pale yellow (YELLOW) 02/11/23 10:00 Urine Appearance Clear (CLEAR) 02/11/23 10:00 Urine pH 8.0 (5.0 - 8.0) 02/11/23 10:00 Ur Specific [place] 1.015 (1.000-1.030) 02/11/23 10:00 Urine Protein Negative (NEGATIVE) 02/11/23 10:00 Urine Glucose (UA) Negative (NEGATIVE) 02/11/23 10:00 Urine Ketones Negative (NEGATIVE) 02/11/23 10:00 Urine Blood 1+ (NEGATIVE) 02/11/23 10:00 Urine Nitrite Negative (NEGATIVE) 02/11/23 10:00 Urine Bilirubin Negative (NEGATIVE) 02/11/23 10:00 Urine Urobilinogen Normal (NORMAL) 02/11/23 10:00 Ur Leukocyte Esterase Negative (NEGATIVE) 02/11/23 10:00 Urine RBC 0-2 /HPF (0-3) 02/11/23 10:00 Urine WBC None seen /HPF (0-5) 02/11/23 10:00 Ur Squamous Epith Cells Rare /HPF (NEGATIVE) 02/11/23 10:00 Amorphous Sediment Trace /HPF (NEGATIVE) 02/11/23 10:00 Urine Bacteria Trace /HPF (NEGATIVE) 02/11/23 10:00 Urine Mucus Rare /HPF (NEGATIVE) 02/11/23 10:00 Ur Culture Indicated? No/not indicated 02/11/23 10:00 - Plan (1) Abdominal pain Status: Acute Qualifiers: Abdominal location: generalized Qualified Code(s): R10.84 - Generalized abdominal pain Plan: D5 NS WITH 20MEQ KCL AT 100 ML/HR, CEFAZOLIN 1G IV Q8H, PROTONIX 40MG IV DAILY, ZOFRAN 4MG IV Q6H, DILAUDID 1MG IV Q4H, OTBS ACHS, COLACE 200MG Q12H PRN, MIRALAX 17G PO DAILY, AND MILK OF MAGNESIA. WE WILL RESUME HIS HOME MEDICATIONS OF FOLIC ACID, LOPID, HYDROXYZINE, LOSARTAN-HCTZ, FLONASE, TAMSULOSIN, GABAPENTIN, DULOXETINE, ZYRTEC, DICYCLOMINE, AND PERCOCET. MONITOR LABS (2) Anemia Status: Acute Qualifiers: Anemia type: iron deficiency Iron deficiency anemia type: chronic blood los s Qualified Code(s): D50.0 - Iron deficiency anemia secondary to blood loss (chronic) Plan: MONITOR H&H (3) Cirrhosis Status: Acute Qualifiers: Hepatic cirrhosis type: unspecified hepatic cirrhosis Ascites presence: with ascites Qualified Code(s): K74.60 - Unspecified cirrhosis of liver; R18.8 - Other ascites (4) Hematuria Status: Acute Qualifiers: Hematuria type: unspecified type Qualified Code(s): R31.9 - Hematuria, unspecified (5) Hematemesis Status: Acute Qualifiers: Nausea presence: with nausea Qualified Code(s): K92.0 - Hematemesis (6) Colitis Status: Acute (7) Anasarca Status: Acute (8) Splenomegaly Status: Acute (9) Pancytopenia Status: Acute (10) Hyperammonemia Status: Acute (11) DM hyperosmolarity type II Status: Chronic Qualifiers: Diabetes mellitus adjunct faculty for medical terminology insulin use: with adjunct faculty for medical terminology use Diabetes mellitus complication detail: without coma Qualified Code(s): E11.00 - Type 2 diabetes mellitus with hyperosmolarity without nonketotic hyperglycemic-hyper osmolar coma (N[facility]HC); Z79.4 - oil heaterman (current) use of insulin (12) HTN (hypertension) Status: Chronic Qualifiers: Hypertension type: primary hypertension Qualified Code(s): I10 - Essential (primary) hypertension (13) Allergic rhinitis Status: Chronic Qualifiers: Allergic rhinitis trigger: unspecified Allergic rhinitis seasonality: unspecified Qualified Code(s): J30.9 - Allergic rhinitis, unspecified
[2023-02-12] MEDS ORDERED: LR 1,000 ML IV 1,000 ML IV ONE (11:42)
[2023-02-12] MEDS ORDERED: DIPRIVAN VIAL 20 ML ONE (12:18)
--- NOTE | 2023-02-12 12:22 | PCM.PROG ---
Progress Note - Progress Note for Day of Date of Exam: 02/11/23 - Subjective Subjective: IS CURRENTLY INPATIENT STATUS FOR TREATMENT OF ABDOMINAL PAIN, ANEMIA, CIRRHOSIS WITH PORTAL HTN, UPPER GI BLEED, COLITIS, ANASARCA, HYPERAMMONEMIA, SPLENOMEGALY, AND PANCYTOPENIA. HE HAS A PMH OF ANEMIA, ANXIETY, DM II, GERD, HTN, CIRRHOSIS OF UNKNOWN CAUSE, KIDNEY STONES, CHOLECYSTECTOMY, ORTHO SURGERY, LITHOTRIPSY. PATIENT REPORTS THAT HE IS SCHEDULED FOR POSSIBLE LIVER BIOPSY SOON. TODAY, HE IS ALERT AND ORIENTED, LYING IN BED ON MORNING ROUNDS. HE DENIES VOMITING ANY SINCE ADMISSION. HE CONTINUES TO COMPLAIN OF DIFFUSE ABDOMINAL PAIN, LOW BACK PAIN, AND GENERALIZED WEAKNESS. HE REPORTS THAT HIS URINE DOES STILL APPEAR TO HAVE BLOOD IN IT. ON EXAMINATION, HEART IS REGU LAR IN RATE AND RHYTHM. BILATERAL LUNGS ARE CLEAR TO AUSCULTATION. ABDOMEN IS ROUND, SOFT, AND NOTED WITH DIFFUSE TENDERNESS. NORMAL BOWEL SOUNDS ARE NOTED IN ALL QUADRANTS. GOOD MOVEMENT NOTED TO UPPER AND LOWER EXTREMITIES WITH NO EDEMA NOTED. HE DOES ADMIT TO HAVING A BOWEL MOVEMENT THIS MORNING. HIS VITALS THIS MORNING ARE: 98.6-94-20-98%-171/88. LABS WERE OBTAINED. WBC 1.4, RBC 3.25, HGB 7.9, HCT 24.3, PLT COUNT 70, SODIUM 142, POTASSIUM 3.3, CHLORIDE 109, BUN 6, CREATININE 0.68, GLUCOSE 93, TOTAL PROTEIN 7.4, ALBUMIN 8.1, TOTAL BILI 1.30, AST 32, ALT 16, ALK PHOS 153, AMMONIA 84, TOTAL PROTEIN 5.3, ALBUMIN 3.1. HE IS CURRENTLY RECEIVING D5 NS WITH 20MEQ KCL AT 100 ML/HR, ALBUMIN 25% IV DAILY, CEFAZOLIN 1G IV Q8H, PROTONIX 40MG IV DAILY, ZOFRAN 4MG IV Q6H, DILAUDID 1MG IV Q4H, OTBS ACHS, COLACE 200MG Q12H PRN, MIRALAX 17G PO DAILY, AND MILK OF MAGNESIA. WE ALSO RESUMED HIS HOME MEDICATIONS OF FOLIC ACID, LOPID, HYDROXYZINE, LOSARTAN-HCTZ, FLONASE, TAMSULOSIN, GABAPENTIN, DULOXETINE, ZYRTEC, DICYCLOMINE, AND PERCOCET. HE IS SCHEDULE FOR AN UPPER ENDOSCOPY FOR TOMORROW MORNING. WE WILL CONTINUE WITH CURRENT PLAN OF CARE AND HOLD PATIENT NPO AFTER MIDNIGHT. OTHERWISE, WE WILL FOLLOW UP WITH AM LABS AND CONTINUE TO MONITOR. TIME SPENT ON CLINICAL ASSESSMENT, REVIEWING LABS AND IMAGING, DECISION MAKING, AND DOCUMENTATION GREATER THAN 45 MINUTES. - Past Medical Family Social History Past Med/Fam/Surg Hx: No changes since H&P Allergies: Allergies No Known Drug Allergies Allergy (Verified 12/07/22 17:37) - Review of Systems ROS: No change since H&P - Vital Signs and I&O's Vital Signs: Vital Signs Temperature 98.2 F Pulse Rate [Left] 92 Respiratory Rate 20 Respiratory Rate 20 Blood Pressure [Left Arm] 162/88 O2 Sat by Pulse Oximetry 95 Intake and Output: Intake & Output 02/10/23 02/11/23 02/12/23 02/13/23 11:59 11:59 11:59 11:59 Intake Total 1100 / 1100 4630 / 4630 2119 / 2119 Balance 1100 / 1100 4630 / 4630 2119 - Physical Exam Oriented: Normal Eyes: Normal Ear: Normal Nose: Normal Throat: Normal Respiratory: Normal Cardiovascular: Normal : Normal Auscultation: Bowel Sounds: Normal Palpation: Normal Tenderness: Diffuse, Mild Skin: Decreased Turgur Musculoskeletal: Back:Lumbar, Tender Psychiatric: Normal Mood Description: Calm Affect: Normal Speech Pattern: Clear, Appropriate - Laboratory and Diagnostics Result Diagrams: 02/12/23 05:30 02/12/23 05:30 Labs: Laboratory WBC 2.1 X10^3/uL (3.6-10.0) L 02/12/23 05:30 RBC 3.42 X10^6/uL (4.7-6.0) L 02/12/23 05:30 Hgb 8.2 g/dL (13.5-18.0) L 02/12/23 05:30 Hct 25.6 % (42.0-54.0) L 02/12/23 05:30 MCV 74.8 fL (80.0-100.0) L 02/12/23 05:30 MCH 24.1 pg (27.0-34.0) L 02/12/23 05:30 MCHC 32.2 g/dL (33.0-35.0) L 02/12/23 05:30 RDW 19.4 % (11.6-16.5) H 02/12/23 05:30 Plt Count 69 X10^3/uL (150.0-450.0) L 02/12/23 05:30 Plt Count Comment Decreased (ADEQUATE) 02/12/23 05:30 MPV 8.4 fL (7.4-11.0) 02/12/23 05:30 Neut % (Auto) 64.2 % (42.0-75.0) 02/12/23 05:30 Lymph % (Auto) 23.6 % (21.0-51.0) 02/12/23 05:30 [place] % (Auto) 10.1 % (0.0-13.0) 02/12/23 05:30 Eos % (Auto) 1.6 % (0.9-2.9) 02/12/23 05:30 Baso % (Auto) 0.5 % (0.2-1.0) 02/12/23 05:30 Neut # (Auto) 1.3 x10^3/uL (2.2-4.8) L 02/12/23 05:30 Lymph # (Auto) 0.5 X10^3/uL (1.3-2.9) L 02/12/23 05:30 [place] # (Auto) 0.2 x10^3/uL (0.3-0.8) L 02/12/23 05:30 Eos # (Auto) 0.0 x10^3/uL (0.0-0.2) 02/12/23 05:30 Baso # (Auto) 0.0 X10^3/uL (0.0-0.1) 02/12/23 05:30 Absolute Nucleated RBC 0.1 /100WBC 02/12/23 05:30 Total Counted 20 02/12/23 05:30 Neutrophils % (Manual) 75 % (39-76) 02/12/23 05:30 Lymphocytes % (Manual) 15 % (13-43) 02/12/23 05:30 Monocytes % (Manual) 10 % (4-9) H 02/12/23 05:30 Plt Morphology Comment Normal (NORMAL) 02/12/23 05:30 RBC Morphology Abnormal (NORMAL) 02/12/23 05:30 Hypochromasia Slight A 02/12/23 05:30 Anisocytosis Slight A 02/12/23 05:30 Microcytosis Slight A 02/12/23 05:30 PT 20.1 SECONDS (11.8-14.3) 02/08/23 14:02 INR Target Range - 02/08/23 14:02 INR 1.75 (0.8-1.3) H 02/08/23 14:02 APTT 43.0 SECONDS (22.9-36.5) H 02/08/23 14:02 PTT Comment - 02/08/23 14:02 Sodium 140 mmol/L (136-145) 02/12/23 05:30 Corrected Sodium TNP 02/12/23 05:30 Potassium 3.4 mmol/L (3.5-5.1) L 02/12/23 05:30 Chloride 107 mmol/L (98-107) 02/12/23 05:30 Carbon Dioxide 24.2 mmol/L (21-32) 02/12/23 05:30 BUN 3 mg/dL (7-18) L 02/12/23 05:30 Creatinine 0.61 mg/dL (0.70-1.30) L 02/12/23 05:30 Est GFR (MDRD) Af Amer > 60 (>60) 02/12/23 05:30 Est GFR (MDRD) Non-Af > 60 (>60) 02/12/23 05:30 Glucose 94 mg/dL (65-99) 02/12/23 05:30 POC Glucose (mg/dL) 105 mg/dL (65-99) H 02/12/23 05:33 Calcium 7.9 mg/dL (8.5-10.1) L 02/12/23 05:30 Corrected Calcium TNP 02/12/23 05:30 Magnesium 1.9 mg/dL (2.0-2.9) L 02/12/23 05:30 Total Bilirubin 1.70 mg/dL (0.2-1.0) H 02/12/23 05:30 AST 24 Units/L (15-37) 02/12/23 05:30 ALT 6 Units/L (12-78) L 02/12/23 05:30 Alkaline Phosphatase 153 Units/L (46-116) H 02/12/23 05:30 Ammonia 64 umol/L (11-32) H 02/12/23 05:30 Troponin I High Sens 10.0 ng/L (4.0-60.0) 02/08/23 14:02 Total Protein 5.7 g/dL (6.4-8.2) L 02/12/23 05:30 Albumin 3.4 g/dL (3.4-5.0) 02/12/23 05:30 Globulin 2.3 g/dL (2.5-4.5) L 02/12/23 05:30 Albumin/Globulin Ratio 1.5 Ratio (1.1-2.1) 02/12/23 05:30 Lipase 58 Units/L (73-393) L 02/08/23 14:02 Specimen Type Clean catch urine 02/11/23 10:00 Urine Color Pale yellow (YELLOW) 02/11/23 10:00 Urine Appearance Clear (CLEAR) 02/11/23 10:00 Urine pH 8.0 (5.0 - 8.0) 02/11/23 10:00 Ur Specific [place] 1.015 (1.000-1.030) 02/11/23 10:00 Urine Protein Negative (NEGATIVE) 02/11/23 10:00 Urine Glucose (UA) Negative (NEGATIVE) 02/11/23 10:00 Urine Ketones Negative (NEGATIVE) 02/11/23 10:00 Urine Blood 1+ (NEGATIVE) 02/11/23 10:00 Urine Nitrite Negative (NEGATIVE) 02/11/23 10:00 Urine Bilirubin Negative (NEGATIVE) 02/11/23 10:00 Urine Urobilinogen Normal (NORMAL) 02/11/23 10:00 Ur Leukocyte Esterase Negative (NEGATIVE) 02/11/23 10:00 Urine RBC 0-2 /HPF (0-3) 02/11/23 10:00 Urine WBC None seen /HPF (0-5) 02/11/23 10:00 Ur Squamous Epith Cells Rare /HPF (NEGATIVE) 02/11/23 10:00 Amorphous Sediment Trace /HPF (NEGATIVE) 02/11/23 10:00 Urine Bacteria Trace /HPF (NEGATIVE) 02/11/23 10:00 Urine Mucus Rare /HPF (NEGATIVE) 02/11/23 10:00 Ur Culture Indicated? No/not indicated 02/11/23 10:00 - Plan (1) Abdominal pain Status: Acute Qualifiers: Abdominal location: generalized Qualified Code(s): R10.84 - Generalized abdominal pain Plan: EGD TOMORROW, D5 NS WITH 20MEQ KCL AT 100 ML/HR, CEFAZOLIN 1G IV Q8H, PROTONIX 40MG IV DAILY, ZOFRAN 4MG IV Q6H, DILAUDID 1MG IV Q4H, OTBS ACHS, COLACE 200MG Q12H PRN, MIRALAX 17G PO DAILY, AND MILK OF MAGNESIA. WE WILL RESUME HIS HOME MEDICATIONS OF FOLIC ACID, LOPID, HYDROXYZINE, LOSARTAN-HCTZ, FLONASE, TAMSULOSIN, GABAPENTIN, DULOXETINE, ZYRTEC, DICYCLOMINE, AND PERCOCET. MONITOR LABS (2) Anemia Status: Acute Qualifiers: Anemia type: iron deficiency Iron deficiency anemia type: chronic blood loss Qualified Code(s): D50.0 - Iron deficiency anemia secondary to blood loss (chronic) Plan: MONITOR H&H (3) Cirrhosis Status: Acute Qualifiers: Hepatic cirrhosis type: unspecified hepatic cirrhosis Ascites presence: with ascites Qualified Code(s): K74.60 - Unspecified cirrhosis of liver; R18.8 - Other ascites (4) Hematuria Status: Acute Qualifiers: Hematuria type: unspecified type Qualified Code(s): R31.9 - Hematuria, unsp ecified (5) Hematemesis Status: Acute Qualifiers: Nausea presence: with nausea Qualified Code(s): K92.0 - Hematemesis (6) Colitis Status: Acute (7) Anasarca Status: Acute (8) Splenomegaly Status: Acute (9) Pancytopenia Status: Acute (10) Hyperammonemia Status: Acute (11) DM hyperosmolarity type II Status: Chronic Qualifiers: Diabetes mellitus longterm insulin use: with longterm use Diabetes anaya itus complication detail: without coma Qualified Code(s): E11.00 - Type 2 diabetes mellitus with hyperosmolarity without nonketotic hyperglycemic- hyperosmolar coma ([facility]); Z79.4 - termite helper (current) use of insulin (12) HTN (hypertension) Status: Chronic Qualifiers: Hypertension type: primary hypertension Qualified Code(s): I10 - Essential (primary) hypertension (13) Allergic rhinitis Status: Chronic Qualifiers: Allergic rhinitis trigger: unspecified Allergic rhinitis seasonality: unspecified Qualified Code(s): J30.9 - Allergic rhinitis, unspecified
[2023-02-12] MEDS: PROTONIX INJ 40 MG VIAL IVP SCH (13:11)
[2023-02-12] MEDS: FOLIC ACID TAB 1 MG PO SCH (13:16)
[2023-02-12] MEDS: NICOTINE PATCH TD SCH (13:23)
[2023-02-12] MEDS: ALBUMIN HUMAN 25%- 100 ML 100 ML IV SCH (14:36)
--- NOTE | 2023-02-12 19:20 | PCM.PROG ---
Progress Note - Progress Note for Day of Date of Exam: 02/12/23 - Subjective Subjective: IS CURRENTLY INPATIENT STATUS FOR TREATMENT OF ABDOMINAL PAIN, ANEMIA, CIRRHOSIS WITH PORTAL HTN, UPPER GI BLEED, COLITIS, ANASARCA, HYPERAMMONEMIA, SPLENOMEGALY, AND PANCYTOPENIA. HE HAS A PMH OF ANEMIA, ANXIETY, DM II, GERD, HTN, CIRRHOSIS OF UNKNOWN CAUSE, KIDNEY STONES, CHOLECYSTECTOMY, ORTHO SURGERY, LITHOTRIPSY. PATIENT REPORTS THAT HE IS SCHEDULED FOR POSSIBLE LIVER BIOPSY SOON. TODAY, HE IS ALERT AND ORIENTED, LYING IN BED ON MORNING ROUNDS. HE DENIES VOMITING ANY SINCE ADMISSION. HE CONTINUES TO COMPLAIN OF DIFFUSE ABDOMINAL PAIN, LOW BACK PAIN, AND GENERALIZED WEAKNESS. ON EXAMINATION, HEART IS REGULAR IN RATE AND RHYTHM. BILATERAL LUNGS ARE CLEAR TO AUSCULTATION. ABDOMEN IS ROUND, SOFT, AND NOTED WITH DIFFUSE TENDERNESS. NORMAL BOWEL SOUNDS ARE NOTED IN ALL QUADRANTS. GOOD MOVEMENT NOTED TO UPPER AND LOWER EXTREMITIES WITH NO EDEMA NOTED. HE DOES ADMIT TO HAVING A BOWEL MOVEMENT YESTERDAY. HIS VITALS THIS MORNING ARE: 98.2-92-20-95%-162/88. LABS WERE OBTAINED. WBC 2.1, RBC 3.42, HGB 8.2, HCT 25.6, PLT COUNT 69, SODIUM 140, POTASSIUM 3.4, CHLORIDE 107, CARBON DIOXIDE 24.2, BUN 3, CREATININE 0.61, GLUCOSE 94, CALCIUM 7.9, MAGNESIUM 1.9, TOTAL BILI 1.70, AST 24, ALT 6, ALK PHOS 153, AMMONIA 64, TOTAL PROTEIN 5.7, ALBUMIN 3.4. HE IS CURRENTLY RECEIVING D5 NS WITH 20MEQ KCL AT 100 ML/HR, ALBUMIN 25% IV DAILY, LACTULOSE 30ML TID, CEFAZOLIN 1G IV Q8H, PROTONIX 40MG IV DAILY, ZOFRAN 4MG IV Q6H, DILAUDID 1MG IV Q4H, OTBS ACHS, COLACE 200MG Q12H PRN, MIRALAX 17G PO DAILY, AND MILK OF MAGNESIA. WE ALSO RESUMED HIS HOME MEDICATIONS OF FOLIC ACID, LOPID, HYDROXYZINE, LOSARTAN-HCTZ, FLONASE, TAMSULOSIN, GABAPENTIN, DULOXETINE, ZYRTEC, DICYCLOMINE, AND PERCOCET. HE IS SCHEDULE FOR AN UPPER ENDOSCOPY FOR THIS MORNING. OTHERWISE, WE WILL CONTINUE WITH CURRENT PLAN TODAY. WE WILL FOLLOW UP WITH AM LABS AND CONTINUE TO MONITOR. TIME SPENT ON CLINICAL ASSESSMENT, REVIEWING LABS AND IMAGING, DECISION MAKING, AND DOCUMENTATION GREATER THAN 45 MINUTES. - Past Medical Family Social History Past Med/Fam/Surg Hx: No changes since H&P Allergies: Allergies No Known Drug Allergies Allergy (Verified 12/07/22 17:37) - Review of Systems ROS: No change since H&P - Vital Signs and I&O's Vital Signs: Vital Signs Temperature 98.0 F Temperature 98.1 F Temperature 98.1 F Temperature 97.9 F Temperature 97.7 F Pulse Rate [Left] 77 Pulse Rate [Left] 79 Pulse Rate [Left] 70 Pulse Rate [Left] 77 Pulse Rate [Left] 78 Respiratory Rate 20 Respiratory Rate 20 Respiratory Rate 20 Respiratory Rate 20 Respiratory Rate 20 Respiratory Rate 20 Respiratory Rate 20 Respiratory Rate 20 Blood Pressure [Left Arm] 159/81 Blood Pressure [Left Arm] 167/91 Blood Pressure [Left Arm] 149/82 Blood Pressure [Left Arm] 156/81 Blood Pressure [Left Arm] 148/75 O2 Sat by Pulse Oximetry 93 O2 Sat by Pulse Oximetry 98 O2 Sat by Pulse Oximetry 100 O2 Sat by Pulse Oximetry 100 O2 Sat by Pulse Oximetry 99 Intake and Output: Intake & Output 02/10/23 02/11/23 02/12/23 02/13/23 11:59 11:59 11:59 11:59 Intake Total 1100 / 1100 4630 / 4630 0 / 0 450 / 450 Balance 1100 / 1100 4630 / 4630 2119 / 0 450 / 450 - Physical Exam Oriented: Normal Eyes: Normal Ear: Normal Nose: Normal Throat: Normal Respiratory: Normal Cardiovascular: Normal : Normal Auscultation: Bowel Sounds: Normal Palpation: Normal Tenderness: Diffuse, Mild Skin: Decreased Turgur Musculoskeletal: Back:Lumbar, Tender Psychiatric: Normal Mood Description: Calm Affect: Normal Speech Pattern: Clear, Appropriate - Laboratory and Diagnostics Result Diagrams: 02/12/23 05:30 02/12/23 05:30 Labs: Laboratory WBC 2.1 X10^3/uL (3.6-10.0) L 02/12/23 05:30 RBC 3.42 X10^6/uL (4.7-6.0) L 02/12/23 05:30 Hgb 8.2 g/dL (13.5-18.0) L 02/12/23 05:30 Hct 25.6 % (42.0-54.0) L 02/12/23 05:30 MCV 74.8 fL (80.0-100.0) L 02/12/23 05:30 MCH 24.1 pg (27.0-34.0) L 02/12/23 05:30 MCHC 32.2 g/dL (33.0-35.0) L 02/12/23 05:30 RDW 19.4 % (11.6-16.5) H 02/12/23 05:30 Plt Count 69 X10^3/uL (150.0-450.0) L 02/12/23 05:30 Plt Count Comment Decreased (ADEQUATE) 02/12/23 05:30 MPV 8.4 fL (7.4-11.0) 02/12/23 05:30 Neut % (Auto) 64.2 % (42.0-75.0) 02/12/23 05:30 Lymph % (Auto) 23.6 % (21.0-51.0) 02/12/23 05:30 [place] % (Auto) 10.1 % (0.0-13.0) 02/12/23 05:30 Eos % (Auto) 1.6 % (0.9-2.9) 02/12/23 05:30 Baso % (Auto) 0.5 % (0.2-1.0) 02/12/23 05:30 Neut # (Auto) 1.3 x10^3/uL (2.2-4.8) L 02/12/23 05:30 Lymph # (Auto) 0.5 X10^3/uL (1.3-2.9) L 02/12/23 05:30 [place] # (Auto) 0.2 x10^3/uL (0.3-0.8) L 02/12/23 05:30 Eos # (Auto) 0.0 x10^3/uL (0.0-0.2) 02/12/23 05:30 Baso # (Auto) 0.0 X10^3/uL (0.0-0.1) 02/12/23 05:30 Absolute Nucleated RBC 0.1 /100WBC 02/12/23 05:30 Total Counted 20 02/12/23 05:30 Neutrophils % (Manual) 75 % (39-76) 02/12/23 05:30 Lymphocytes % (Manual) 15 % (13-43) 02/12/23 05:30 Monocytes % (Manual) 10 % (4-9) H 02/12/23 05:30 Plt Morphology Comment Normal (NORMAL) 02/12/23 05:30 RBC Morphology Abnormal (NORMAL) 02/12/23 05:30 Hypochromasia Slight A 02/12/23 05:30 Anisocytosis Slight A 02/12/23 05:30 Microcytosis Slight A 02/12/23 05:30 PT 20.1 SECONDS (11.8-14.3) 02/08/23 14:02 INR Target Range - 02/08/23 14:02 INR 1.75 (0.8-1.3) H 02/08/23 14:02 APTT 43.0 SECONDS (22.9-36.5) H 02/08/23 14:02 PTT Comment - 02/08/23 14:02 Sodium 140 mmol/L (136-145) 02/12/23 05:30 Corrected Sodium TNP 02/12/23 05:30 Potassium 3.4 mmol/L (3.5-5.1) L 02/12/23 05:30 Chloride 107 mmol/L (98-107) 02/12/23 05:30 Carbon Dioxide 24.2 mmol/L (21-32) 02/12/23 05:30 BUN 3 mg/dL (7-18) L 02/12/23 05:30 Creatinine 0.61 mg/dL (0.70-1.30) L 02/12/23 05:30 Est GFR (MDRD) Af Amer > 60 (>60) 02/12/23 05:30 Est GFR (MDRD) Non-Af > 60 (>60) 02/12/23 05:30 Glucose 94 mg/dL (65-99) 02/12/23 05:30 POC Glucose (mg/dL) 119 mg/dL (65-99) H 02/12/23 16:40 Calcium 7.9 mg/dL (8.5-10.1) L 02/12/23 05:30 Corrected Calcium TNP 02/12/23 05:30 Magnesium 1.9 mg/dL (2.0-2.9) L 02/12/23 05:30 Total Bilirubin 1.70 mg/dL (0.2-1.0) H 02/12/23 05:30 AST 24 Units/L (15-37) 02/12/23 05:30 ALT 6 Units/L (12-78) L 02/12/23 05:30 Alkaline Phosphatase 153 Units/L (46-116) H 02/12/23 05:30 Ammonia 64 umol/L (11-32) H 02/12/23 05:30 Troponin I High Sens 10.0 ng/L (4.0-60.0) 02/08/23 14:02 Total Protein 5.7 g/dL (6.4-8.2) L 02/12/23 05:30 Albumin 3.4 g/dL (3.4-5.0) 02/12/23 05:30 Globulin 2.3 g/dL (2.5-4.5) L 02/12/23 05:30 Albumin/Globulin Ratio 1.5 Ratio (1.1-2.1) 02/12/23 05:30 Lipase 58 Units/L (73-393) L 02/08/23 14:02 Specimen Type Clean catch urine 02/11/23 10:00 Urine Color Pale yellow (YELLOW) 02/11/23 10:00 Urine Appearance Clear (CLEAR) 02/11/23 10:00 Urine pH 8.0 (5.0 - 8.0) 02/11/23 10:00 Ur Specific [place] 1.015 (1.000-1.030) 02/11/23 10:00 Urine Protein Negative (NEGATIVE) 02/11/23 10:00 Urine Glucose (UA) Negative (NEGATIVE) 02/11/23 10:00 Urine Ketones Negative (NEGATIVE) 02/11/23 10:00 Urine Blood 1+ (NEGATIVE) 02/11/23 10:00 Urine Nitrite Negative (NEGATIVE) 02/11/23 10:00 Urine Bilirubin Negative (NEGATIVE) 02/11/23 10:00 Urine Urobilinogen Normal (NORMAL) 02/11/23 10:00 Ur Leukocyte Esterase Negative (NEGATIVE) 02/11/23 10:00 Urine RBC 0-2 /HPF (0-3) 02/11/23 10:00 Urine WBC None seen /HPF (0-5) 02/11/23 10:00 Ur Squamous Epith Cells Rare /HPF (NEGATIVE) 02/11/23 10:00 Amorphous Sediment Trace /HPF (NEGATIVE) 02/11/23 10:00 Urine Bacteria Trace /HPF (NEGATIVE) 02/11/23 10:00 Urine Mucus Rare /HPF (NEGATIVE) 02/11/23 10:00 Ur Culture Indicated? No/not indicated 02/11/23 10:00 - Plan (1) Abdominal pain Status: Acute Qualifiers: Abdominal location: generalized Qualified Code(s): R10.84 - Generalized abdominal pain Plan: EGD TODAY, D5 NS WITH 20MEQ KCL AT 100 ML/HR, LACTULOSE 30ML TID, CEFAZOLIN 1G IV Q8H, PROTONIX 40MG IV DAILY, ZOFRAN 4MG IV Q6H, DILAUDID 1MG IV Q4H, OTBS ACHS, COLACE 200MG Q12H PRN, MIRALAX 17G PO DAILY, AND MILK OF MAGNESIA. WE WILL RESUME HIS HOME MEDICATIONS OF FOLIC ACID, LOPID, HYDROXYZINE, LOSARTAN-HCTZ, FLONASE, TAMSULOSIN, GABAPENTIN, DULOXETINE, ZYRTEC, DICYCLOMINE, AND PERCOCET. MONITOR LABS (2) Anemia Status: Acute Qualifiers: Anemia type: iron deficiency Iron deficiency anemia type: chronic blood loss Qualified Code(s): D50.0 - Iron deficiency anemia secondary to blood loss (chronic) Plan: MONITOR H&H (3) Cirrhosis Status: Acute Qualifiers: Hepatic cirrhosis type: unspecified hepatic cirrhosis Ascites presence: wit h ascites Qualified Code(s): K74.60 - Unspecified cirrhosis of liver; R18.8 - Other ascites (4) Hematuria Status: Acute Qualifiers: Hematuria type: unspecified type Qualified Code(s): R31.9 - Hematuria, unspecified (5) Hematemesis Status: Acute Qualifiers: Nausea presence: with nausea Qualified Code(s): K92.0 - Hematemesis (6) Colitis Status: Acute (7) Anasarca Status: Acute (8) Splenomegaly Status: Acute (9) Pancytopenia Status: Acute (10) Hyperammonemia Status: Acute (11) DM hyperosmolarity type II Status: Chronic Qualifiers: Diabetes mellitus buttermaker helper insulin use: with buttermaker helper use Diabetes mellitus complication detail: without coma Qualified Code(s): E11.00 - Type 2 diabetes mellitus with hyperosmolarity without nonketotic hyperglycemic- hyperosmolar coma ([facility]); Z79.4 - ferry terminal agent (current) use of insulin (12) HTN (hypertension) Status: Chronic Qualifiers: Hypertension type: primary hypertension Qualified Code(s): I10 - Essential (primary) hypertension (13) Allergic rhinitis Status: Chronic Qualifiers: Allergic rhinitis trigger: unspecified Allergic rhinitis seasonality: unspecified Qualified Code(s): J30.9 - Allergic rhinitis, unspecified
[2023-02-12] MEDS: ZyrTEC TAB 10 MG PO SCH (20:57)
[2023-02-12] MEDS: FLOMAX PO SCH (21:17)
[2023-02-13] MEDS: DILAUDID INJ IVP PRN ×3 (01:01→09:30)
[2023-02-13] MEDS: D5 1/2 NS + KCL 20 MEQ/L 1,000 ML IV SCH ×2 (02:51→08:34)
[2023-02-13] MEDS: NEURONTIN TAB 600 MG PO SCH (05:12)
[2023-02-13] MEDS: CHRONULAC PO SCH (05:13)
[2023-02-13] MEDS: ANCEF VIAL 1 GRAM 1 G in NS 100 ML IV 100 ML IV SCH (05:14)
[2023-02-13] MEDS: LOPID PO SCH (05:31)
[2023-02-13 06:11] LABS: BASOPHILS % (AUTO) 0.5 % (0.2-1.0); EOSINOPHILS % (AUTO) 1.8 % (0.9-2.9); HEMATOCRIT 27.2 % (42.0-54.0); HEMOGLOBIN 8.9 g/dL (13.5-18.0); LYMPHOCYTES # (AUTO) 0.5 X10^3/uL (1.3-2.9); LYMPHOCYTES % (AUTO) 23.4 % (21.0-51.0); MEAN CORPUSCULAR HEMOGLOBIN 24.3 pg (27.0-34.0); MEAN CORPUSCULAR HGB CONC 32.7 g/dL (33.0-35.0); MEAN CORPUSCULAR VOLUME 74.5 fL (80.0-100.0); MEAN PLATELET VOLUME 8.6 fL (7.4-11.0); MONOCYTES # (AUTO) 0.2 x10^3/uL (0.3-0.8); MONOCYTES % (AUTO) 8.2 % (0.0-13.0); NEUTROPHILS # (AUTO) 1.4 x10^3/uL (2.2-4.8); NEUTROPHILS % (AUTO) 66.1 % (42.0-75.0); PLATELET COUNT 63 X10^3/uL (150.0-450.0); RED BLOOD COUNT 3.65 X10^6/uL (4.7-6.0); RED CELL DISTRIBUTION WIDTH 19.8 % (11.6-16.5); WHITE BLOOD COUNT 2.1 X10^3/uL (3.6-10.0)
[2023-02-13 06:21] LABS: BLOOD UREA NITROGEN 3 mg/dL (7-18); CALCIUM 8.4 mg/dL (8.5-10.1); CHLORIDE 106 mmol/L (98-107); COR NA(FOR HYPERGLY) 141 mmol/L (136-145); CREATININE 0.69 mg/dL (0.70-1.30); GLUCOSE 132 mg/dL (65-99); POTASSIUM 3.5 mmol/L (3.5-5.1); SODIUM 140 mmol/L (136-145); eGFR NON BLACK RACES > 60 (>60)
[2023-02-13 06:23] LABS: AMMONIA 39 umol/L (11-32)
[2023-02-13 06:49] LABS: ALANINE AMINOTRANSFERASE 12 Units/L (12-78); ALBUMIN 3.5 g/dL (3.4-5.0); ALKALINE PHOSPHATASE 162 Units/L (46-116); ASPARTATE AMINO TRANSFERASE 26 Units/L (15-37); TOTAL PROTEIN 6.1 g/dL (6.4-8.2)
[2023-02-13] MEDS ORDERED: CONSULT PHARMACY - POTASSIUM & MAGNESIUM XX SCH (07:00)
[2023-02-13 07:04] LABS: ANISOCYTOSIS SLIGHT; HYPOCHROMASIA SLIGHT; MICROCYTOSIS SLIGHT; PLATELET MORPHOLOGY COMMENT NORMAL (NORMAL)
[2023-02-13 08:28] VITALS: BP 152/87; PULSE 88; RESP 20; O2SAT 97
[2023-02-13 08:29] VITALS: TEMP 98.3
[2023-02-13] MEDS: NICOTINE PATCH TD SCH (08:33)
[2023-02-13] MEDS: ALBUMIN HUMAN 25%- 100 ML 100 ML IV SCH (08:33)
[2023-02-13] MEDS: PROTONIX INJ 40 MG VIAL IVP SCH (08:34)
[2023-02-13] MEDS: FOLIC ACID TAB 1 MG PO SCH (08:35)
[2023-02-13] MEDS: BENTYL CAP 10 MG PO SCH (08:35)
[2023-02-13] MEDS: CYMBALTA PO SCH (08:35)
[2023-02-13] MEDS: MIRALAX POWDER (1 DOSE 17 G) PO SCH (08:36)
[2023-02-13] MEDS: HYZAAR 50/12.5 MG PO SCH (08:36)
[2023-02-13] MEDS ORDERED: KLOR-CON PO ONE (09:00)
[2023-02-13] MEDS: MAG-OX TAB PO SCH ×2 (09:20→09:21)
--- NOTE | 2023-02-13 09:33 | DR.PROGNOT ---
HOSPITAL PROGRESS NOTE Progress Note for Day of: Progress Note Date: 03/16/23 Chief Complaint Chief Complaint: feeling better today , no further nausea or vomiting. Upper endoscopy yesterday revealed esophageal varices extending to the mid esophagus without bleeding.\ Moderate gastritis erosive type, again without any active bleeding. Pathology report is pending. Past Medical Family Social History Allergies: Allergies No Known Drug Allergies Allergy (Verified 12/07/22 17:37) Review Of Systems ROS: No change since H&P Vital Signs Vital Signs: Vital Signs Temperature 98.3 F Temperature 98.1 F Pulse Rate [Left] 88 Pulse Rate [Left] 76 Respiratory Rate 20 Respiratory Rate 22 Respiratory Rate 20 Respiratory Rate 20 Respiratory Rate 21 Blood Pressure [Left Arm] 152/87 Blood Pressure [Left Arm] 174/75 O2 Sat by Pulse Oximetry 97 O2 Sat by Pulse Oximetry 99 Physical Exam Oriented: Normal Eyes: Normal Ear: Normal Nose: Normal Throat: Normal Respiratory: Normal Cardiovascular: Normal : Normal GI:Auscultation: Normal GI:Palpation: Normal GI: Tenderness: Diffuse, Mild and Other (Small reducible and asymptomatic umbilical hernia.) Skin: Decreased Turgur Musculoskeletal: Back:Lumbar and Tender Psychiatric: Normal Mood Description: Calm Affect: Normal Speech Pattern: Clear and Appropriate Laboratory and Diagnostics 02/13/23 05:23 02/13/23 05:23 Labs: Laboratory WBC 2.1 X10^3/uL (3.6-10.0) L 02/13/23 05:23 RBC 3.65 X10^6/uL (4.7-6.0) L 02/13/23 05:23 Hgb 8.9 g/dL (13.5-18.0) L 02/13/23 05:23 Hct 27.2 % (42.0-54.0) L 02/13/23 05:23 MCV 74.5 fL (80.0-100.0) L 02/13/23 05:23 MCH 24.3 pg (27.0-34.0) L 02/13/23 05: MCHC 32.7 g/dL (33.0-35.0) L 02/13/23 05:23 RDW 19.8 % (11.6-16.5) H 02/13/23 05:23 Plt Count 63 X10^3/uL (150.0-450.0) L 02/13/23 05:23 Plt Count Comment Decreased (ADEQUATE) 02/13/23 05:23 MPV 8.6 fL (7.4-11.0) 02/13/23 05:23 Neut % (Auto) 66.1 % (42.0-75.0) 02/13/23 05:23 Lymph % (Auto) 23.4 % (21.0-51.0) 02/13/23 05:23 Sullivan % (Auto) 8.2 % (0.0-13.0) 02/13/23 05:23 Eos % (Auto) 1.8 % (0.9-2.9) 02/13/23 05:23 Baso % (Auto) 0.5 % (0.2-1.0) 02/13/23 05:23 Neut # (Auto) 1.4 x10^3/uL (2.2-4.8) L 02/13/23 05:23 Lymph # (Auto) 0.5 X10^3/uL (1.3-2.9) L 02/13/23 05:23 [place] # (Auto) 0.2 x10^3/uL (0.3-0.8) L 02/13/23 05:23 Eos # (Auto) 0.0 x10^3/uL (0.0-0.2) 02/13/23 05:23 Baso # (Auto) 0.0 X10^3/uL (0.0-0.1) 02/13/23 05:23 Absolute Nucleated RBC 0.0 /100WBC 02/13/23 05:23 Total Counted 100 02/13/23 05:23 Neutrophils % (Manual) 72 % (39-76) 02/13/23 05:23 Lymphocytes % (Manual) 20 % (13-43) 02/13/23 05:23 Monocytes % (Manual) 8 % (4-9) 02/13/23 05:23 Plt Morphology Comment Normal (NORMAL) 02/13/23 05:23 RBC Morphology Abnormal (NORMAL) 02/13/23 05:23 Hypochromasia Slight A 02/13/23 05:23 Anisocytosis Slight A 02/13/23 05:23 Microcytosis Slight A 02/13/23 05:23 PT 20.1 SECONDS (11.8-14.3) 02/08/23 14:02 INR Target Range - 02/08/23 14:02 INR 1.75 (0.8-1.3) H 02/08/23 14:02 APTT 43.0 SECONDS (22.9-36.5) H 02/08/23 14:02 PTT Comment - 02/08/23 14:02 Sodium 140 mmol/L (136-145) 02/13/23 05:23 Corrected Sodium 141 mmol/L (136-145) 02/13/23 05:23 Potassium 3.5 mmol/L (3.5-5.1) 02/13/23 05:23 Chloride 106 mmol/L (98-107) 02/13/23 05:23 Carbon Dioxide 26.0 mmol/L (21-32) 02/13/23 05:23 BUN 3 mg/dL (7-18) L 02/13/23 05:23 Creatinine 0.69 mg/dL (0.70-1.30) L 02/13/23 05:23 Est GFR (MDRD) Af Amer > 60 (>60) 02/13/23 05:23 Est GFR (MDRD) Non-Af > 60 (>60) 02/13/23 05:23 Glucose 132 mg/dL (65-99) H 02/13/23 05:23 POC Glucose (mg/dL) 128 mg/dL (65-99) H 02/13/23 05:11 Calcium 8.4 mg/dL (8.5-10.1) L 02/13/23 05:23 Corrected Calcium TNP 02/13/23 05:23 Magnesium 1.9 mg/dL (2.0-2.9) L 02/12/23 05:30 Total Bilirubin 1.50 mg/dL (0.2-1.0) H 02/13/23 05:23 AST 26 Units/L (15-37) 02/13/23 05:23 ALT 12 Units/L (12-78) 02/13/23 05:23 Alkaline Phosphatase 162 Units/L (46-116) H 02/13/23 05:23 Ammonia 39 umol/L (11-32) H 02/13/23 05:23 Troponin I High Sens 10.0 ng/L (4.0-60.0) 02/08/23 14:02 Total Protein 6.1 g/dL (6.4-8.2) L 02/13/23 05:23 Albumin 3.5 g/dL (3.4-5.0) 02/13/23 05:23 Globulin 2.6 g/dL (2.5-4.5) 02/13/23 05: Albumin/Globulin Ratio 1.3 Ratio (1.1-2.1) 02/13/23 05: Lipase 58 Units/L (73-393) L 02/08/23 14:02 Specimen Type Clean catch urine 02/11/23 10:00 Urine Color Pale yellow (YELLOW) 02/11/23 10:00 Urine Appearance Clear (CLEAR) 02/11/23 10:00 Urine pH 8.0 (5.0 - 8.0) 02/11/23 10:00 Ur Specific [place] 1.015 (1.000-1.030) 02/11/23 10:00 Urine Protein Negative (NEGATIVE) 02/11/23 10:00 Urine Glucose (UA) Negative (NEGATIVE) 02/11/23 10:00 Urine Ketones Negative (NEGATIVE) 02/11/23 10:00 Urine Blood 1+ (NEGATIVE) 02/11/23 10:00 Urine Nitrite Negative (NEGATIVE) 02/11/23 10:00 Urine Bilirubin Negative (NEGATIVE) 02/11/23 10:00 Urine Urobilinogen Normal (NORMAL) 02/11/23 10:00 Ur Leukocyte Esterase Negative (NEGATIVE) 02/11/23 10:00 Urine RBC 0-2 /HPF (0-3) 02/11/23 10:00 Urine WBC None seen /HPF (0-5) 02/11/23 10:00 Ur Squamous Epith Cells Rare /HPF (NEGATIVE) 02/11/23 10:00 Amorphous Sediment Trace /HPF (NEGATIVE) 02/11/23 10:00 Urine Bacteria Trace /HPF (NEGATIVE) 02/11/23 10:00 Urine Mucus Rare /HPF (NEGATIVE) 02/11/23 10:00 Ur Culture Indicated? No/not indicated 02/11/23 10:00 Assessment and Plan 1: Moderate erosive gastritis without active bleeding Same Protonix 40 mg twice a day and Carafate 1 g 3 times a day. Follow-up in the office in 3 weeks. 2: Esophageal varices related to portal hypertension and liver cirrhosis. No active bleeding. Patient scheduled to see his cytology supervisor who will address the portal hypertension and esophageal varices. 3: Chronic gastroesophageal reflux disease and gastroparesis Same management with a small meals and Protonix daily.. Problem Patient Problems: Patient Problems Abdominal pain (Acute) R10.9 Cirrhosis (Acute) K74.60 Anasarca (Acute) R60.1 Splenomegaly (Acute) R16.1 Hematemesis (Acute) K92.0 Hematuria (Acute) R31.9 Colitis (Acute) K52.9 DM hyperosmolarity type II (Chronic) E11.00 HTN (hypertension) (Chronic) I10 Allergic rhinitis (Chronic) J30.9 Hyperammonemia (Acute) E72.20 Anemia (Acute) D64.9 Pancytopenia (Acute) D61.818
[2023-02-13] MEDS ORDERED: K-DUR TAB 20 MEQ PO SCH (21:00)
== END 2023-02-13 12:10 | disposition home or self-care (01) | DRG 432 ==
LOC: ER 13:03 → MED/SURG 18:04
PROVIDERS: ADMIT Internal Medicine; ATTEND Internal Medicine